=== PATIENT | male | born 1985 | race Caucasian/White ===

== ENCOUNTER 2019-08-21 15:01 | Outpatient (CLI) | payer OTHER, SELFPAY | END 2019-08-21 15:02 | disposition home or self-care (01) | PROVIDERS: PCP Internal Medicine; Visit Provider Internal Medicine | DX: R19.7 Diarrhea, unspecified (principal) | CPT/HCPCS: 87177; 87209 ==

== ENCOUNTER 2021-09-05 12:38 | Emergency (ER) | payer OTHER, SELFPAY ==
[2021-09-05 12:43] VITALS: BP 147/91; PULSE 94; RESP 16; TEMP 36.7; O2SAT 100
--- NOTE | 2021-09-05 12:51 | ED.LOWEXIN ---
HPI - Extremity Injury (Lower) General Chief Complaint: Extremity Injury, Lower Stated Complaint: left hamstring pain Time Seen by Provider: 09/05/21 12:40 Source: patient History of Present Illness HPI Narrative: Patient presents with left posterior thigh pain. Patient ports that pain for the past few days. His pain is achy, constant, worse with walking around. When he is walking it radiates down towards his knee and he feels a pressure sensation. Reports these travel to [place] recently for work denies any recent hospitalizations surgeries or prior history of blood clots. Denies any edema or trauma. Related Data Allergies Allergy/AdvReac Type Severity Reaction Status Date / Time No Known Allergies Allergy Unverified 06/19/18 20:43 Review of Systems Review of Systems: CONSTITUTIONAL: Denies fever, chills, or sweats. EYES: Denies visual changes, redness, or discharge. ENT: Denies rhinorrhea, congestion, sore throat, or otalgia. CARDIOVASCULAR: Denies chest pain, palpitations, or edema. RESPIRATORY: Denies cough or dyspnea. GASTROINTESTINAL: Denies abdominal pain, nausea, vomiting, or diarrhea. GENITOURINARY: Denies dysuria or hematuria. SKIN: Denies rash or itching. MUSCULOSKELETAL: Denies back pain, joint pain. NEUROLOGIC: Denies headache, numbness, dizziness, or weakness. PSYCHIATRIC: Denies anxiety or depression. All systems reviewed & are unremarkable except as noted in HPI and below PMFSH Past Medical History Medical History (Updated 09/05/21 @ 12:54 by Toby Barnes MD) Patient denies significant medical history Family History Family History Mother Family history of blood dyscrasia Social History Social History Smoking status: Never smoker Alcohol intake: current Exam Narrative: GENERAL: Well-appearing, well-nourished, and in no acute distress. HEAD: Normocephalic, atraumatic. EYES: PERRLA and EOMI. ENT: Nares clear, no rhinorrhea or epistaxis. Mucous membranes moist. NECK: Supple. No masses. No JVD EXTREMITIES: Normal range of motion. No edema. Mild tenderness palpation along the left hamstring no open or draining wounds no masses no focal bony tenderness. Patient has 5 out of 5 strength through motion of the left hip and left knee SKIN: Warm, dry, no rash. NEURO: No focal deficits. Alert and oriented x3. PSYCH: Normal mood and affect. Course Vital Signs Vital signs: Vital Signs Temperature 36.7 C 09/05/21 12:43 Pulse Rate 94 09/05/21 12:43 Respiratory Rate 16 09/05/21 12:43 Blood Pressure 147/91 H 09/05/21 12:43 Pulse Oximetry 100 09/05/21 12:43 Temperature 36.7 C 09/05/21 12:43 Pulse Rate 94 09/05/21 12:43 Respiratory Rate 16 09/05/21 12:43 Blood Pressure 147/91 H 09/05/21 12:43 Pulse Oximetry 100 09/05/21 12:43 MDM - Extremity Injury (Lower) MDM Narrative Medical decision making narrative: H&P as above, vss, pt looks clinically well, exam mild tenderness palpation of the hamstring, labs/img were offered however there is local concern for DVT, rhabdo myelolysis, fracture, major neurovascular compromise, dislocation. Patient comfortable without labs or imaging and will monitor symptoms at home. Suspect soft tissue strain. plan to tx/monitor as op w/ pcm f/u findings/plan discussed with pt, pt agree/comfortable with plan, return precautions given Discharge Plan Discharge Clinical Impression: Muscle strain Patient Disposition: Home, Self-Care Condition: Improved Instructions: Antibiotic Form, P.R.I.C.E. Treatment (ED) Additional Instructions: Please return if your symptoms worsen or fail to improve. If you develop a fever, can not eat/drink anything or if you have any other concerns. Follow-up/Referrals: Dave,Tan Johnson MD [Primary Care Provider] - Time of Disposition: 12:54
== END 2021-09-05 13:07 | disposition home or self-care (01) ==
LOC: ANHED 13:02
PROVIDERS: Emergency Provider Emergency Medicine; PCP Internal Medicine
DX: S76.812A Strain of other specified muscles, fascia and tendons at thigh level, left thigh, initial encounter (principal); X58.XXXA Exposure to other specified factors, initial encounter
CPT/HCPCS: 99281

== ENCOUNTER 2022-04-20 11:34 | Emergency (ER) | payer OTHER, SELFPAY ==
[2022-04-20 12:31] VITALS: BP 122/92; PULSE 78; RESP 18; TEMP 36.2; O2SAT 100
--- NOTE | 2022-04-20 13:25 | ED.URI ---
HPI - URI/Sore Throat General Chief Complaint: Upper Respiratory Infection Stated Complaint: dizziness,cough,sorethroat Time Seen by Provider: 04/20/22 13:25 Source: patient Mode of arrival: ambulatory Limitations: no limitations History of Present Illness HPI Narrative: 36-year-old male presents with complaint of nasal congestion, sinus pressure, postnasal drainage and cough for approximately 1 week. Reports that cough is worse in the morning. States all symptoms have been getting progressively worse. Today took a COVID test that was negative. Afebrile. Reports pressure past 2 days to both ears. All systems reviewed and negative except as noted above. Related Data Home Medications Medication Instructions Recorded Confirmed escitalopram oxalate 20 mg tablet 20 mg PO DAILY 04/20/22 04/20/22 Allergies Allergy/AdvReac Type Severity Reaction Status Date / Time No Known Allergies Allergy Verified 04/20/22 12:48 Review of Systems Review of Systems: CONSTITUTIONAL: Denies fever, chills, or sweats. Reports fatigue. EYES: Denies visual changes, redness, or discharge. ENT: Reports rhinorrhea, congestion, sore throat, sinus pressure and otalgia. CARDIOVASCULAR: Denies chest pain, palpitations, or edema. RESPIRATORY: reports cough. Denies dyspnea. GASTROINTESTINAL: Denies abdominal pain, nausea, vomiting, or diarrhea. GENITOURINARY: Denies dysuria or hematuria. SKIN: Denies rash or itching. MUSCULOSKELETAL: Denies back pain, joint pain, or myalgia. NEUROLOGIC: Denies headache, numbness, or weakness. PSYCHIATRIC: Denies anxiety or depression. All other systems reviewed are negative, except as documented in HPI. [facility] Past Medical History Medical History (Updated 04/21/22 @ 00:01 by Lisandro Snell) Patient denies significant medical history Family History Family History Mother Family history of blood dyscrasia Social History Social History Smoking status: Never smoker Alcohol intake: current Comments reviewed Exam Narrative: GENERAL: This is a well-nourished, well-developed patient, in no apparent distress. HEAD: normocephalic, atraumatic. EYES: PERRL. Sclera clear/white. Vision is grossly intact. EARS: External ears normal, auditory canals clear and without drainage, Fluids to bilateral TMs, mild erythema with bulging. No perforation. NOSE: External nose normal with Clear nasal drainage, erythema to both nares with swelling, mild moderate congestion. Bilateral maxillary sinus tenderness. THROAT: Mucous membranes moist, posterior pharynx clear. NECK: Neck supple, non-tender without lymphadenopathy, masses or thyromegaly. CARDIOVASCULAR: Regular rate and rhythm without murmurs, gallops, or rubs. RESPIRATORY: Clear to auscultation. Breath sounds equal bilaterally. No wheezes, rales, or rhonchi. SKIN: warm, Dry, intact with no suspicious lesions or rash, good texture and turgor. NEURO: awake, alert, and oriented to person, place and time. There were no obvious focal neurologic abnormalities. EXTREMITIES: No joint tenderness, effusion, or edema noted. Course Course Level of Care: Express Care Visit Vital Signs Vital signs: Vital Signs Temperature 36.2 C L 04/20/22 12:31 Pulse Rate 78 04/20/22 12:31 Respiratory Rate 18 04/20/22 12:31 Blood Pressure 122/92 H 04/20/22 12:31 Pulse Oximetry 100 04/20/22 12:31 Oxygen Delivery Room Air 04/20/22 12:31 Temperature 36.2 C L 04/20/22 12:31 Pulse Rate 78 04/20/22 12:31 Respiratory Rate 18 04/20/22 12:31 Blood Pressure 122/92 H 04/20/22 12:31 Pulse Oximetry 100 04/20/22 12:31 Oxygen Delivery Room Air 04/20/22 12:31 Reviewed MDM - URI/Sore Throat MDM Narrative Medical decision making narrative: Patient is aware of diagnosis, understands and agrees to treatment plan. Gali carson
== END 2022-04-20 13:35 | disposition home or self-care (01) ==
PROVIDERS: Emergency Provider Nurse Practitioner Family; PCP Internal Medicine
DX: J01.90 Acute sinusitis, unspecified (principal); H65.93 Unspecified nonsuppurative otitis media, bilateral
CPT/HCPCS: 99211; G0463

== ENCOUNTER 2022-07-24 11:09 | Emergency (ER) | payer OTHER, SELFPAY ==
[2022-07-24 11:30] VITALS: BP 137/85; PULSE 96; RESP 20; TEMP 36.7; O2SAT 97
[2022-07-24 12:10] LABS: Basophils Percent Auto 0.5 % (0.2-1.2); Eosinophils Absolute Auto 0.1 K/mm3 (0-0.3); Eosinophils Percent Auto 0.6 % (0-4.4); Hematocrit 47.2 % (42.0-52.0); Hemoglobin 16.1 g/dL (14.0-18.0); Immature Granulocyte Absolute 0.02 K/mm3 (0.00-0.031); Immature Granulocyte Percent A 0.3 % (0-0.5); Lymphocytes Absolute Auto 1.76 K/mm3 (0.9-3.2); Lymphocytes Percent Auto 22.1 % (18.3-44.2); Mean Corpuscular HGB Conc 34.1 g/dl (32-36); Mean Corpuscular Hemoglobin 30.7 pg (26-34); Mean Corpuscular Volume 89.9 fl (80-100); Mean Platelet Volume 9.5 fl (7.4-10.4); Monocytes Absolute Auto 0.5 K/mm3 (0.1-0.6); Neutrophils Absolute Auto 5.6 K/mm3 (1.3-6.7); Neutrophils Percent Auto 70.5 % (45.5-73.1); Platelet Count Result 314 k/mm3 (150-375); Red Blood Count 5.25 M/mm3 (4.6-6.20); Red Cell Distribution Width 13.4 % (11.5-14.5)
[2022-07-24 12:16] LABS: Appearance Urine Clear (Clear); Bacteria Urine None Seen /hpf; Bilirubin Urine Negative (Negative); Blood Urine Negative (Negative); Color Urine Dark Yellow (Yellow); Glucose Urine UA Negative (Negative); Ketones Urine Trace mg/dL (Negative); Leukocyte Esterase Ur Trace LEU/UL (Negative); Nitrate Urine Negative (Negative); Non Pathogenic Casts 0-2; Protein Urine Trace mg/dL (Negative); RBC Urine 0-2 /hpf (0-2); Squamous Epithelial Cell Urine None seen /hpf (Few); WBC Urine 0-5 /hpf
[2022-07-24 12:18] LABS: Ethanol < 10 mg/dL (<10)
[2022-07-24 12:22] LABS: Alanine Aminotransferase 36 U/L (6-50); Albumin Level 5.1 g/dL (3.5-5.1); Alkaline Phosphatase 99 U/L (38-126); Anion Gap 9 mmol/L (8-16); Aspartate Amino Transferase 31 U/L (17-59); Bilirubin,Total 0.7 mg/dL (0.2-1.3); Blood Urea Nitrogen 15 mg/dL (9-20); Calcium 9.7 mg/dL (8.4-10.2); Carbon Dioxide 25 mmol/L (22-30); Chloride 104 mmol/L (98-107); Estimated CRCL calculation 124 ml/min; Estimated Glomerular Filt Rate > 60; Glucose 104 mg/dL (65-110); Potassium 4.5 mmol/L (3.4-5.0); Sodium 138 mmol/L (137-145)
[2022-07-24 12:28] LABS: Amphetamine Screen Urine Negative (Negative); Barbiturate Screen Urine Negative (Negative); Benzodiazepines Screen Urine Negative (Negative); Cannabinoid Screen Urine Negative (Negative); Cocaine Screen Urine Negative (Negative); Methadone Screen Urine Negative (Negative); Opiate Screen Urine Negative (Negative); Phencyclidine Screen Urine Negative (Negative)
[2022-07-24 12:35] LABS: Add Urine Microscopic? YES
[2022-07-24 12:45] LABS: Influenza A QL RT-PCR Negative (Negative); Influenza B QL RT-PCR Negative (Negative); SARS-CoV-2 RNA PCR Negative
[2022-07-24 12:55] LABS: Thyroid Stimulating Hormone 0.532 uIU/mL (0.465-4.680)
--- NOTE | 2022-07-24 13:02 | PC.NURSE ---
Crisis will come to evaluate pt.
--- NOTE | 2022-07-24 13:09 | ED.PSYCH ---
HPI - Psych General Chief Complaint: Psychiatric Symptoms Stated Complaint: Depression bad thoughts , lack of appeitie Time Seen by Provider: 07/24/22 11:42 Source: patient Mode of arrival: ambulatory Limitations: no limitations History of Present Illness HPI Narrative: This is a 36 year old male that presents to the ER for worsening depression ongoing over the last week. Reports history of anxiety for which he takes Escitalopram daily. He does report not consistently taking this medication. Reports over the last week he has had worsening depression. Reports no known triggers or recent increased stress. Reports he does not want to get out of bed and has no energy. He feels hopeless, doesn't want to eat, and has no energy. He reports some passive thoughts of self harm without a plan. No previous attempts at self-harm. No previous psychiatric hospitalizations. Denies homicidal ideations or hallucinations. Related Data Home Medications Medication Instructions Recorded Confirmed escitalopram oxalate 20 mg tablet 20 mg PO DAILY 04/20/22 04/20/22 Allergies Allergy/AdvReac Type Severity Reaction Status Date / Time No Known Allergies Allergy Verified 07/24/22 11:35 Review of Systems Review of Systems: CONSTITUTIONAL: Denies fever PSYCHIATRIC: Reports anxiety and depression. All systems reviewed & are unremarkable except as noted in HPI and below PMFSH Past Medical History Medical History (Updated 07/24/22 @ 14:19 by Angelic West PA-C) History of anxiety Family History Family History Mother Family history of blood dyscrasia Social History Social History Smoking status: Never smoker Alcohol intake: current Substance use type: does not use Exam Narrative: GENERAL: Well-appearing, well-nourished, and in no acute distress. HEAD: Normocephalic, atraumatic. EYES: EOMI. ENT: Mucous membranes moist. Oropharynx without tonsillar hypertrophy exudate or other lesions. CHEST: Clear to auscultation. No respiratory distress. No wheezes rales or rhonchi HEART: Regular rate and rhythm. No murmur heard. Normal peripheral pulses. EXTREMITIES: Normal range of motion. No edema. SKIN: Warm, dry, no rash. NEURO: No focal deficits. Alert and oriented x3. PSYCH: Normal mood and affect Course Course Emergency Course: Patient evaluated by crisis and will be discharged with resources and safety plan. Patient and agree with plan Vital Signs Vital signs: Vital Signs Temperature 98.1 F 07/24/22 11:30 Pulse Rate 96 07/24/22 11:30 Respiratory Rate 20 07/24/22 11:30 Blood Pressure 137/85 07/24/22 11:30 Pulse Oximetry 97 07/24/22 11:30 Oxygen Delivery Room Air 07/24/22 11:30 Temperature 98.1 F 07/24/22 11:30 Pulse Rate 96 07/24/22 11:30 Respiratory Rate 20 07/24/22 11:30 Blood Pressure 137/85 07/24/22 11:30 Pulse Oximetry 97 07/24/22 11:30 Oxygen Delivery Room Air 07/24/22 11:30 MDM - Psych MDM Narrative Medical decision making narrative: Patient presents to the ER for worsening depression noted over the last week. No active plan of self harm. No previous attempts at self harm or history of psychiatric hospitalization. Does report he was not properly taking his Escitalopram. He has a good support system. CBC and metabolic panel without concerning findings. Drug screen is negative. Alcohol level is negative. TSH is normal. Patient was medically cleared for evaluation by crisis. Patient evaluated and will be discharged with resources and safety plan. Patient and agree with plan. He was given warnings to return to the ER Differential Diagnosis Differential diagnosis: Likely suicidal ideation, depression and acute anxiety Lab Data Attestation: I reviewed the patient's lab results. 07/24/22 11:49 07/24/22 11:49 Labs: Lab Resul
== END 2022-07-24 14:32 | disposition home or self-care (01) ==
PROVIDERS: Emergency Medicine; Emergency Provider Physician Assistant; PCP Internal Medicine
DX: F32.A Depression, unspecified (principal); F41.9 Anxiety disorder, unspecified; Z20.822 Contact with and (suspected) exposure to COVID-19; Z79.82 Long term (current) use of aspirin
CPT/HCPCS: 36415; 80053; 80307; 81001; 84443; 85025; 87636; 99284

== ENCOUNTER 2024-06-25 17:34 | Emergency (ER) | payer OTHER, SELFPAY ==
--- OUTSIDE RECORDS SUMMARY | 2024-06-25 17:49 | XMS_ITS | Clinical Summary ---
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 Name Role Phone Unavailable Primary Care Provider Unavailabl e Allergies No known active allergies Medications No known medications Active Problems No known active problems Social History Tobacco Use Types Packs/Day Years Used Date Smoking Tobacco: Never Smokeless Tobacco: Never Alcohol Use Standard Drinks/Week Comments Yes 0 (1 standard drink = 0.6 oz pur e alcohol) Sex and Gender Information Value Date Recorded Sex Assigned at Not on file Legal 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 Gender Identity Not on file Sexual Orientation Not on file Last Filed Vital Signs Vital Sign Reading Time Taken Comments Blood Pressure 131/84 04/08/2020 9:11 AM TOPOLOGY TEACHER Pulse 85 04/08/2020 9:11 AM TOPOLOGY TEACHER Temperature 36.7 ??C (98 ??F) 04/08/2020 9:11 AM TOPOLOGY TEACHER Respiratory Rate - - Oxygen Saturation 99% 04/08/2020 9:11 AM TOPOLOGY TEACHER Inhaled Oxygen Concentration - - Weight 108.9 kg (240 lb) 04/08/2020 9:11 AM TOPOLOGY TEACHER Height 182.9 cm (6') 04/08/2020 9:11 AM TOPOLOGY TEACHER Body Mass Index 32.55 04/08/2020 9:11 AM TOPOLOGY TEACHER Plan of Treatment Health Maintenance Due Date Last Done Comments DTAP/TDAP/TD VACCINES (1 - Tdap) 2004 HEPATITIS B VACCINES (1 of 3 - 19+ 3-dose series) 2004 INFLUENZA VACCINE (#1) 2023 04/16/2019 HPV VACCINES Aged Out No longer eligi ble based on patient's age to complete this topic Insurance [employer]
--- OUTSIDE RECORDS SUMMARY | 2024-06-25 17:49 | XMS_ITS | Clinical Summary ---
Author Organization [facility] [address] Address [address] [place] [id number] Care Team Providers Care Leakage Tester Name Role Phone Tan Acosta MD Primary Care Provider [phone] Allergies No known active allergies Medications multivitamin with minerals (Multiple Vitamin-Minerals ) tablet Take 1 tablet by mouth daily Active hyoscyamine (LEVSIN) 0.125 mg tablet 11/17/2020 Active escitalopram (LEXAPRO) 20 mg tablet Take 1 tablet by mouth daily 08/24/2021 Active docosahexaenoic acid-epa 120-180 mg capsule Take 1,000 mg by mouth 2 (two) times a day Active cholecalciferol (VITAMIN D-3) 2000 unit tablet Take by mouth Active Active Problems Problem Noted Date Diagnosed Date COVID-19 02/09/2022 Obstructive sleep apnea syndrome, moderate 08/30 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/2018 Generalized anxiety disorder 05/31/2018 Depression, major, single episode, moderate 03/01 Liver cyst 07/29/2016 Dermatofibroma 03/24/2015 Right hip pain 03/24/2015 Lump in the testicle 04/29/2014 Fatigue 01/03/2013 Encounters Date Type Department Care Team Description 06/20/2024 7:05 PM ICE RINK ATTENDANT - 06/20/2024 11:59 PM ICE RINK ATTENDANT Hospital Encounter [facility] [address] [place] [id number] Discharge Disposition: Discharge to home or self care 06/20/2024 2:59 PM ICE RINK ATTENDANT - 06/20/2024 11:59 PM ICE RINK ATTENDANT Hospital Encounter [facility]) [address] [place] [address] Discharge Disposition: Discharge to home or self care 05/15/2024 2:01 PM ICE RINK ATTENDANT - 05/15/2024 3:10 PM ICE RINK ATTENDANT Emergency [facility] Emergency Department [address] [place] [address] Gabriel Duckworth DO Dizziness (Primary Dx) Discharge Disposition: Discharge to home or self care from Last 3 Months Surgical History Surgery Date Site/Laterality Comments APPENDECTOMY SINUS SURGERY EAR SURGERY Medical History Medical History Date Comments Anxiety Social History Tobacco Use Types Packs/Day Years Used Date Smoking Tobacco: Never Smokeless Tobacco: Never Personal Safety Answer Date Recorded Have you ever been in or are you currently in a harmful physical or emotional relationship or is someone making you feel afraid or unsafe? Denies 05/15/2024 Sex and Gender Information Value Date Recorded Sex Assigned at Not on file Legal Sex Male 3:18 PM ICE RINK ATTENDANT Gender Identity Not on file Sexual Orientation Not on file Obstetrics History Last Filed Vital Signs Vital Sign Reading Time Taken Comments Blood Pressure 120/85 05/15/2024 3:05 PM ICE RINK ATTENDANT Pulse 86 05/15/2024 3:05 PM ICE RINK ATTENDANT Temperature 37.1 ??C (98.7 ??F) 05/15/2024 1 1:27 AM ICE RINK ATTENDANT Respiratory Rate 20 05/15/2024 3:05 PM ICE RINK ATTENDANT Oxygen Saturation 98% 05/15/2024 3:05 PM ICE RINK ATTENDANT Inhaled Oxygen Concentration - - Weight 107.5 kg (236 lb 15.9 oz) 2023 11:27 AM ICE RINK ATTENDANT Height 182.9 cm (6') 05/15/2024 11:27 AM ICE RINK ATTENDANT Body Mass Index 32.14 05/15/2024 11:27 AM ICE RINK ATTENDANT Plan of Treatment Health Maintenance Due Date Last Done Comments Depression Screening 1985 Hepatitis C Screening 1985 Varicella Vaccines (1 of 2 - 13+ 2-dose series) 1998 Hepatitis B Screening 12/14/2003 Regular Well Visit/Exam 18-64 12/14/2003 DTaP/Tdap/Td Vaccine (1 - Tdap) 07/24/2014 07/23/2014 Covid-19 Vaccine (3 - 202-2 5 season) 2024 10/03/2020, 09/05/2020 Influenza Vaccine Completed 04/12/2024, 04/16/2019, 03/28/2018 HPV Vaccines Aged Out No longer eligi ble based on patient's age to complete this topic Pneumococcal vaccine <65 Aged Out No longer eligible based on patient's age to complete this topic Procedures Procedure Name Priority Date/Time Associated Diagnosis Comments NEURO MR OUTSIDE REFERENCE Routine 06/20/2024 7:05 PM ICE RINK ATTENDANT NEURO CT OUTSIDE REFERENCE Routine 06/20/2024 2:59 PM ICE RINK ATTENDANT Diagnosis unknown CT HEAD WO CONTRAST ED 05/15/2024 1 2:01 PM ICE RINK ATTENDANT URINALYSIS AND REFLEX TO MICROSCOPIC AND CULTURE STAT 05/15/2024 11:50 AM ICE RINK ATTENDANT POCT GLUCOSE DEVICE Routine 05/15/2024 1 1:48 AM ICE RINK ATTENDANT EGFR STAT 05/15/2024 11:42 AM ICE RINK ATTENDANT DIFFERENTIAL AUTO STAT 05/15/2024 11: 42 AM ICE RINK ATTENDANT COMPREHENSIVE METABOLIC PANEL STAT 05/15/2024 11:42 AM ICE RINK ATTENDANT CBC WITH AUTO DIFFERENTIAL STAT 05/15/2024 11:42 AM ICE RINK ATTENDANT ECG 12-LEAD STAT 05/15/2024 11:40 AM ICE RINK ATTENDANT from Last 3 Months Results * Neuro MR Outside Reference (06/20/2024 7:05 PM ICE RINK ATTENDANT) Impressions RAD_PACS_[facility] - 06/20/2024 7:05 PM ICE RINK ATTENDANT These images are for Reference purposes only and have not been reviewed by [facility]. ??There will be no report generated by a [facility] Radiologist. Narrative RAD_PACS_[facility] - 06/20/2024 7:05 PM ICE RINK ATTENDANT EXAMINATION: ??Images For Reference Purposes Only us Zacarias Grady MD IMG MRI PROCEDURES Final R esult RAD_PACS_[facility] * Neuro CT Outside Reference (06/20/2024 2:59 PM ICE RINK ATTENDANT) Impressions [facility]_PACS[facility] - 06/20/2024 2:59 PM ICE RINK ATTENDANT These images are for Reference purposes only and have not been reviewed by [facility]. ??There will be no report generated by a [facility] Radiologist. Narrative [facility]_PACS[facility] - 06/20/2024 2:59 PM ICE RINK ATTENDANT EXAMINATION: ??Images For Reference Purposes Only us Zacarias Grady MD IMG CT PROCEDURES Final Re sult Performing Organization Address [facility] Co de Phone Number [email or web address] * CT Head WO Contrast (05/15/2024 12:01 PM ICE RINK ATTENDANT) Anatomical Region Laterality Modality Head and Neck N/A Computed Tomogra phy 05/15/2024 12:4 3 PM ICE RINK ATTENDANT Narrative 05/15/2024 12:50 PM ICE RINK ATTENDANT EXAM DESCRIPTION: CT HEAD WO CONTRAST REASON FOR STUDY: Headache, sudden, severe ?Patient states last night at approx 7pm he felt a pop to the back of his head and began having tunnel vision and aphasia. States that subsided quickly but he continues to have dizziness and a headache. Denies any history of migraines. ? TECHNIQUE: Axial images acquired through the brain without intravenous contrast. Sagittal and coronal images reconstructed. ?? Images stored on PACS. Automated exposure control was used as a dose optimization technique for this examination. COMPARISON: None. FINDINGS: Beam hardening artifact from the skull base obscures evaluation of the brainstem. ??Findings made within these confines. ?? SURGICAL/SUPPORT DEVICES: ??None. BRAIN PARENCHYMA: ?? No acute large vascular territory infarction. ?? No acute intraparenchymal hemorrhage. ?? No mass or significant mass effect. ?Patchy periventricular hypodensities involving the bilateral centrum semiovale which are nonspecific but can be seen with mild chronic microvascular ischemic changes. ??Nonspecific partially empty sella. ? EXTRA-AXIAL SPACES: ?? No hyperdense fluid collections. ?? VENTRICLES: ??No acute hydrocephalus. BONES/SOFT TISSUES: ?? No significant soft tissue injury. No acute displaced calvarial fracture. PARANASAL SINUSES: ??Predominately clear. ORBITS: ?? No significant abnormality. MASTOIDS/MIDDLE EAR: ??Under developed bilateral mastoid air cells. OTHER: ?? None. IMPRESSION: 1. ?? No acute large vascular territorial infarction. ??No acute intracranial hemorrhage. 2. ?? Patchy periventricular white matter hypoattenuation which is nonspecific but can be seen with mild chronic microvascular ischemic change. THIS IS AN ELECTRONICALLY VERIFIED FINAL REPORT 05/15/2024 12:50 PM - Electronically signed by ??Heri uSe M.D. NS: NS D: ??05/15/2024 12:50 PM T: ??05/15/2024 12:50 PM Report ID: [id number] Reading Location: ??[id number] Procedure Note Heri Sue MD - 05/15/2024 EXAM DESCRIPTION: CT HEAD WO CONTRAST REASON FOR STUDY: Headache, sudden, severe Patient states last night at approx 7pm he felt a pop to the back ofhis head and began having tunnel vision and aphasia. States that subsidedquickly but he continues to have dizziness and a headache. Denies any history of migraines. TECHNIQUE: Axial images acquired through the brain without intravenous contrast. Sagittal and coronal images reconstructed. Images stored on[employer]ban[employer]. Automated exposure control was used as a dose optimization technique forthis examination. COMPARISON: None. FINDINGS: Beam hardening artifact from the skull base obscures evaluationof the brainstem. Findings made within these confines. SURGICAL/SUPPORT DEVICES: None. BRAIN PARENCHYMA: No acute large vascular territory infarction. Noacute intraparenchymal hemorrhage. No mass or significant mass effect.Patchy periventricular hypodensities involving the bilateral centrum semiovalewhich are nonspecific but can be seen with mild chronic microvascular ischemic changes. Nonspecific partially empty sella. EXTRA-AXIAL SPACES: No hyperdense fluid collections. VENTRICLES: No acute hydrocephalus. BONES/SOFT TISSUES: No significant soft tissue injury. No acutedisplaced calvarial fracture. PARANASAL SINUSES: Predominately clear. ORBITS: No significant abnormality. MASTOIDS/MIDDLE EAR: Under developed bilateral mastoid air cells. OTHER: None. IMPRESSION: 1. No acute large vascular territorial infarction. No acuteintracranial hemorrhage. 2. Patchy periventricular white matter hypoattenuation which isnonspecific but can be seen with mild chronic microvascular ischemic change. THIS IS AN ELECTRONICALLY VERIFIED FINAL REPORT 05/15/2024 12:50 PM - Electronically signed by Heri Sue M.D. NS: NS Report ID: [id number] Reading Location: [place] [address] Gabriel Duckworth DO IMG CT PROCEDURES Final Res ult * Urinalysis reflex to microscopic and culture Urine (05/15/2024 11:50 AM ICE RINK ATTENDANT) Color, ur Yellow Yellow Comment:Testing performed by : [address] [address] Clarity, ur Clear Clear [facility] Comment:Testing performed by : [address] [address] Specific gravity, ur 1.021 1.003 - 1.030 [facility] Comment:Testing performed by : [address] [address] pH, urine 7.5 [facility] Comment: Interpretive Data ? Urine pH is affected by diet, medications, systemic acid-base disturbances, and renal tubular function. ??pH may affect urinary stone formation. ??For example, urine pH below 6.0 may help reduce the tendency for calcium phosphate stones and pH greater than 6.0 may reduce the tendency for uric acid stone formation. Source: [employer] Current Interpretive Data was last revised on 2017 Testing performed by: [address] [address] Protein, ur ql Negative Negative [facility] Comment:Testing performed by : [address] [address] Glucose, ur ql Negative Negative [facility] Comment:Testing performed by : [address], [place]., [address] Ketones, ur Negative Negative [facility] Comment:Testing performed by : [address], [place]., [address] Bilirubin, ur Negative Negative [facility] Comment:Testing performed by : [address], [place]., [address] Blood, ur Negative Negative [facility] Comment:Testing performed by : [address], [place]., [address] Urobilinogen, ur <2.0 <2.0 mg/dL [facility] Comment:Testing performed by : [address], [place]., [address] Nitrite, ur Negative Negative [facility] Comment:Testing performed by : [address], [place]., [address] Leukocyte esterase, ur Negative Negative [facility] Comment:Testing performed by : [address], [place]., [address] UA reflex comment Reflex conditions for microscopic UA and culture not met. [facility] Comment:Testing performed by : [address], [place]., [address] Urine 05/15/2024 11:5 0 AM ICE RINK ATTENDANT 05/15/2024 12:03 PM ICE RINK ATTENDANT us Gabriel Duckworth DO LAB MICROBIOLOGY - GENERAL ORDERABLES Final Result Performing Organization Address [facility] Co nm Phone Number [facility] [address] [facility] Department of Laboratories [place], [place] [id number] * POCT glucose (05/15/2024 11:48 AM ICE RINK ATTENDANT) Glucose, POC 85 70 - 199 mg/dL Comment:Testing performed by : [address], [place]., [address] Blood 05/15/2024 11:4 8 AM ICE RINK ATTENDANT 05/15/2024 11:48 AM ICE RINK ATTENDANT us Notinfile Unknown LAB POCT ORDERABLES - DEVICE F inal Result Performing Organization Address City/[facility]/ZIP Co de Phone Number [facility] [address] [facility] Department [place] [address] * eGFR (05/15/2024 11:42 AM ICE RINK ATTENDANT) eGFR >90 >=60 mL/min/1. 73 m2 Comment: Interpretive Data Reference Interval Normal ?>/= 90 mL/min/1.73m2 Mildly decreased* ? 60 - 89 mL/min/1.73m2 Mildly to moderately decreased ?45 - 59 mL/min/1.73m2 Moderately to severely decreased ??30 - 44 mL/min/1.73m2 Severely decreased ?15 - 29 mL/min/1.73m2 Kidney Failure ?< 15 ??mL/min/1.73m2 *Relative to young adult level Estimated glomerular filtration rate is determined by the 2020 CKD-EPI equation recommended by the National Kidney Foundation (A Unifying Approach to GFR Estimation: Recommendations of the NKF-ASK Task Force on Reassessing the Inclusion of Race in Diagnosing Kidney Disease, JASN 2020). The CKD-EPI equation should not be used for patients with unstable renal function and has not been validated in children and those over 70. Current interpretive data was last reviewed 2021. Testing performed by: [facility], [address] [place] [address]., [address] Blood 05/15/2024 11:4 2 AM ICE RINK ATTENDANT 05/15/2024 12:03 PM ICE RINK ATTENDANT us Gabriel Duckworth DO LAB BLOOD ORDERABLES Final Result [facility] [address] [facility] Department [place] [address] * Differential, auto (05/15/2024 11:42 AM ICE RINK ATTENDANT) [facility] Neutrophil abs 4.7 1.5 - 6.5 K/cumm Comment:Testing performed by : [address] [address] Imm gran abs 0.0 0.0 - 0.1 K/cumm [facility] Comment:Testing performed by : [address] [address] Lymphocyte abs 1.5 0.8 - 3.3 K/cumm [facility] Comment:Testing performed by : [address] [address] Monocyte abs 0.5 0.2 - 0.8 K/cumm [facility] Comment:Testing performed by : [address] [address] Eosinophil abs 0.1 0.0 - 0.5 K/cumm [facility] Comment:Testing performed by : [address] [address] Basophil abs 0.0 0.0 - 0.1 K/cumm [facility] Comment:Testing performed by : [address] [address] Neutrophil pct 68.0 % [facility] Comment: Interpretive Data Percent cell count reference ranges are not reported, since discordance with absolute values may lead to misinterpretation of CBC data. Current Interpretive Data was last revised on 2017. Testing performed by: [address] [address] Imm gran pct 0.4 % [facility] Comment: Interpretive Data Percent cell count reference ranges are not reported, since discordance with absolute values may lead to misinterpretation of CBC data. Current Interpretive Data was last revised on 2017. Testing performed by: [address] [address] Lymphocyte pct 22.3 % [facility] Comment: Interpretive Data Percent cell count reference ranges are not reported, since discordance with absolute values may lead to misinterpretation of CBC data. Current Interpretive Data was last revised on 2017. Testing performed by: [address] [address] Monocyte pct 7.7 % [facility] Comment: Interpretive Data Percent cell count reference ranges are not reported, since discordance with absolute values may lead to misinterpretation of CBC data. Current Interpretive Data was last revised on 2017. Testing performed by: [address] [address] Eosinophil pct 1.2 % [facility] Comment: Interpretive Data Percent cell count reference ranges are not reported, since discordance with absolute values may lead to misinterpretation of CBC data. Current Interpretive Data was last revised on 2017. Testing performed by: [address] [address] Basophil pct 0.4 % [facility] Comment: Interpretive Data Percent cell count reference ranges are not reported, since discordance with absolute values may lead to misinterpretation of CBC data. Current Interpretive Data was last revised on 2017. Testing performed by: [address] [address] Blood 05/15/2024 11:4 2 AM ICE RINK ATTENDANT 05/15/2024 12:03 PM ICE RINK ATTENDANT us Gabriel Duckworth DO LAB BLOOD ORDERABLES Final Result [facility] [address] [facility] Department [place] [address] * CBC with auto differential (05/15/2024 11:42 AM ICE RINK ATTENDANT) WBC 6.9 3.8 - 9.9 K/cumm Comment:Testing performed by : [address] [address] Hgb 15.1 13.0 - 17.5 g/dL [facility] Comment:Testing performed by : [address] [address] Hct 45.4 38.9 - 50.3 % [facility] Comment:Testing performed by : [address] [address] Plt 285 150 - 400 K/cumm [facility] Comment:Testing performed by : [address] [address] MPV 10.1 9.1 - 12.3 fL [facility] Comment:Testing performed by : [address] [address] RBC 5.02 4.30 - 5.80 M/cumm [facility] Comment:Testing performed by : [address] [address] MCV 90.4 81.3 - 96.4 fL [facility] Comment:Testing performed by : [address] [address] MCH 30.1 27.1 - 33.3 pg [facility] Comment:Testing performed by : [address] [address] MCHC 33.3 32.3 - 35.7 g/dL [facility] Comment:Testing performed by : [address] [address] RDW CV 13.2 11.1 - 14.9 % [facility] Comment:Testing performed by : [address] [address] RDW SD 42.9 35.7 - 48.1 fL [facility] Comment:Testing performed by : [address] [address] NRBC abs 0.00 0.00 - 0.01 K/cumm [facility] Comment:Testing performed by : [address] [address] Blood 05/15/2024 11:4 2 AM ICE RINK ATTENDANT 05/15/2024 12:03 PM ICE RINK ATTENDANT us Gabriel Duckworth DO LAB BLOOD ORDERABLES Final Result [facility] [address] [facility] Department [place] [address] * Comprehensive metabolic panel (05/15/2024 11:42 AM ICE RINK ATTENDANT) Sodium 140 135 - 145 mmol/L Comment:Testing performed by : [address] [address] Potassium, pl 4.1 3.3 - 4.9 mmol/L [facility] Comment:Testing performed by : [address], [place]., [address] Chloride 103 97 - 110 mmol/L [facility] Comment:Testing performed by : [address], [place]., [address] CO2 28 22 - 32 mmol/L [facility] Comment:Testing performed by : [address], [place]., [address] Anion gap 9 2 - 15 mmol/L [facility] Comment:Testing performed by : [address], [place]., [address] BUN 11 6 - 25 mg/dL [facility] Comment:Testing performed by : [address], [place]., [address] Creatinine 1.00 0.80 - 1.30 mg/dL [facility] Comment:Testing performed by : [address] [address] Glucose 90 70 - 199 mg/dL [facility] Comment: Interpretive Data Fasting glucose >/= 126 mg/dl is diagnostic for diabetes. ?? Fasting is defined as no caloric intake for at least 8 hours. Fasting glucose between 100 mg/dl to 125 mg/dl is diagnostic of prediabetes. In a patient with classic symptoms of hyperglycemia or hyperglycemic crisis, a random glucose >/= 200 mg/dl is diagnostic for diabetes. In the absence of unequivocal hyperglycemia, results should be confirmed by repeat testing. The classification and Diagnosis of Diabetes Diabetes Care 202; 46: S19-S40. Current interpretive data was last revised 2022. Testing performed by: [address] [address] Calcium 9.6 8.5 - 10.3 mg/dL [facility] Comment:Testing performed by : [address] [address] Bilirubin, total 0.3 0.1 - 1.2 mg/dL [facility] Comment:Testing performed by : [address] [address] Protein, pl 7.8 6.5 - 8.5 g/dL [facility] Comment:Testing performed by : [address] [address] Albumin 4.5 3.5 - 5.0 g/dL [facility] Comment:Testing performed by : [address] [address] Alk phos 103 40 - 130 Units/L [facility] Comment:Testing performed by : [address] [address] ALT 19 7 - 55 Units/L [facility] Comment:Testing performed by : [address] [address] AST 19 10 - 50 Units/L [facility] Comment:Testing performed by : [address], [address] Blood 05/15/2024 11:4 2 AM ICE RINK ATTENDANT 05/15/2024 12:03 PM ICE RINK ATTENDANT Gabriel Duckworth DO LAB BLOOD ORDERABLES Final Result Performing Organization Address City/[facility] Co de Phone Number [facility] [address] [facility] Department [place] [address] * ECG 12 lead (05/15/2024 11:40 AM ICE RINK ATTENDANT) Ventricular Rate EKG/Min 86 BPM [facility] Atrial Rate [address] [facility] CA-Interval (MSEC) [address] [facility] QRS-Interval (MSEC) [address] [facility] QT-Interval (MSEC[facility] [address] [facility] QTc [address] [facility] P [place] [address] [facility] R [place] [address] [facility] T [place] [address] [facility] Diagnosis Normal sinus rhythm Normal ECG No previous ECG available for comparison Confirmed by SULTAN COON M.D. ([id number]) on 05/15/2024 4:35:11 PM [facility] 05/15/2024 11:4 0 AM ICE RINK ATTENDANT 05/15/2024 4:35 PM ICE RINK ATTENDANT Gabriel Duckworth DO ECG ORDERABLES Final Resul t Performing Organization Address City/[facility] Co de Phone Number [facility] from Last 3 Months Insurance CIG[employer] CIGNA CIGNA Care Teams Leakage Tester Relationship Specialty Start Date End Date Tan Acosta MD [address] [place] [address] PCP - General Internal Medicine 12/06/22
--- OUTSIDE RECORDS SUMMARY | 2024-06-25 17:49 | XMS_ITS | Encounter Summary ---
Author Organization [facility] Address [address] [place] [address]. [place], [place] [address] [place] [address] Care Team Providers Care Air Reduction Equipment Operator Name Role Phone Tan Acosta MD Primary Care Provider [phone] Encounter Details Date Type Department Care Team (Late st Contact Info) Description 11/09/2019 Prep for Procedure [facility] One Day [place], [place] [phone] Reza Aburto MD [address] [phone] Social History Tobacco Use Types Packs/Day Years Used Date Smoking Tobacco: Former Cigarettes Smokeless Tobacco: Former Chew Comments:can't remember when he quit- been several years Alcohol Use Standard Drinks/Week Comments Yes 1.7 (1 standard drink = 0.6 oz p ure alcohol) AUDIT-C Answer Date Recorded Frequency of Alcohol Consumption 2-3 times a wee k 05/31/2018 Average Number of Drinks 1 or 2 019 Frequency of Binge Drinking Not on file 06/2018 Sex and Gender Information Value Date Recorded Sex Assigned at Male 05/31/2018 10:17 AM BOOSTER PLANT OPERATOR Legal Sex Male 4:36 PM CDT Gender Identity Male 05/31/2018 10:17 AM BOOSTER PLANT OPERATOR Sexual Orientation Straight 05/31/2018 10 :17 AM BOOSTER PLANT OPERATOR COVID-19 Exposure Response Date Recorded In the last month, have you been in contact with someone who was confirmed or suspected to have Coronavirus / COVID-19? No / Unsure 11/12/2019 12:28 PM CDT documented as of this encounter Plan of Treatment Not on file documented as of this encounter Results * PRE-SURGICAL/PRE-PROCEDURE CORONAVIRUS (COVID 19) (11/09/2019 1:15 PM CDT) CORONAVIRUS SARS COV 2 PCR (RESP) NOT DETECTED NOT DETECTED 11/11/2019 4:54 AM CDT [facility] Comment: A Not Detected (negative) test result for this test means that SARS- CoV-2 RNA was not present in the specimen above the limit of detection. A negative result does not rule out the possibility of COVID-19 and should not be used as the sole basis for treatment or patient management decisions. ??If COVID-19 is still suspected, based on exposure history together with other clinical findings, re-testing should be considered in consultation with public health authorities. Laboratory test results should always be considered in the context of clinical observations and epidemiological data in making a final diagnosis and patient management decisions. Please review the Fact Sheets and FDA authorized labeling available for health care providers and patients using the following websites: https://www.[employer]/home/Covid-19/HCP/NAAT/fact-sheet2 https://www.[employer]/home/Covid-19/Patients/NAAT/ fact-sheet2 This test has been authorized by the FDA under an Emergency Use Authorization (EUA) for use by authorized laboratories. Due to the current public health emergency, [facility] is receiving a high volume of samples from a wide variety of swabs and media for COVID-19 testing. In order to serve patients during this public health crisis, samples from appropriate clinical sources are being tested. Negative test results derived from specimens received in non-commercially manufactured viral collection and transport media, or in media and sample collection kits not yet authorized by FDA for COVID-19 testing should be cautiously evaluated and the patient potentially subjected to extra precautions such as additional clinical monitoring, including collection of an additional specimen. Methodology: ??Nucleic Acid Amplification Test (NAAT) includes PCR or TMA Additional information about COVID-19 can be found at the [facility] website: www.[employer]/Covid19. Test performed at [facility] [address] [place], [place] ??[address] Director: ARYAN GIRON DO,MPH NASOPHARYNGEAL SWAB / Unknown 11/09/2019 1:15 PM CDT us Reza Aburto MD MICROBIOLOGY - GENERAL ORDERABLE S Final Result [facility] [address] [place] [address], documented in this encounter Visit Diagnoses Diagnosis Diarrhea- Primary documented in this encounter Additional Health Concerns Infection Onset Date Last Indicated Resolved Time COVID-19 Rule Out 11/09/2019 11/09/2019 11/11/2019 4:54 AM CDT COVID-19 Rule Out 11/09/2019 11/09/2019 05/09/2020 2:45 PM BOOSTER PLANT OPERATOR COVID-19 Rule Out 04/03/2021 04/03/2021 04/03/2021 10:25 AM CDT COVID-19 Rule Out 04/03/2021 04/03/2021 04/04/2021 2:31 AM CDT COVID-19 Rule Out 06/03/2023 06/03/2023 06/03/2023 1:53 PM BOOSTER PLANT OPERATOR COVID-19 Rule Out 06/03/2023 06/03/2023 06/04/2023 11:32 PM BOOSTER PLANT OPERATOR documented as of this encounter Care Teams Air Reduction Equipment Operator Relationship Specialty Start Date End Date Tan Acosta MD [address] [place] [address] PCP - General 01/19/13 documented as of this encounter
--- OUTSIDE RECORDS SUMMARY | 2024-06-25 17:49 | XMS_ITS | Clinical Summary ---
Author Organization [facility] Address [address] [place] [address]. [place], [place] [id number] [place] [address] Care Team Providers Care Pararescue Craftsman Name Role Phone Tan Acosta MD Primary Care Provider [phone] Allergies No known active allergies Medications Cholecalciferol (VITAMIN D) 50 MCG (1999) Tab Active multi vitamin/mineral s tablet Take 1 tablet by mouth daily. Active CPAP DEVICE, DME, 1 Device by Does not apply route. AutoPap: [id number] ([facility]) Active LORazepam (ATIVAN) 0.5 MG tabletIndicatio ns:Generalized anxiety disorder TAKE 1 TABLET(0.5 MG) BY MOUTH TWICE DAILY NEEDED FOR ANXIETY 10 tablet 03/12/2024 Active venlafaxine XR (EFFEXOR-XR) 75 MG 24 hr capsuleIndicati ons:Generalized anxiety disorder TAKE 1 CAPSULE(75 MG) BY MOUTH DAILY 90 capsule 05/21/2024 Active Active Problems Problem Noted Date Diagnosed Date COVID-19 02/09/2022 Obstructive sleep apnea syndrome, moderate 08/30 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/2018 Generalized anxiety disorder 05/31/2018 Depression, major, single ep isode, moderate (CMS/HCC HHS/HCC) 03/28/2018 Liver cyst 07/29/2016 Dermatofibroma 03/24/2015 Right hip pain 03/24/2015 Lump in the testicle 04/29/2014 Fatigue 01/03/2013 Resolved Problems Problem Noted Date Diagnosed Date Resolved Date Influenza vaccine needed 03/28/201803/2020 Ear congestion 06/02/2017 05/31/2018 Encounters Date Type Department Care Team Description 06/06/2024 Telephone [facility] Family & Internal [address] [phone] Tan Acosta MD Advice 06/05/2024 10:40 AM CONTENT ASSISTANT Office Visit [facility] Internal [address] [phone] Tan Acosta MD ER F/U ([facility] hospital f/u 05/15/24 for dizziness, confusion, dysphasia) 06/05/2024 Travel 05/28/2024 1:52 PM CONTENT ASSISTANT - 05/28/2024 11:59 PM CONTENT ASSISTANT Hospital Encounter [address] [address] Tan Acosta MD Discharge Disposition: Home or Self Care (Routine Discharge) 05/28/2024 Travel 05/15/2024 Scan Medio INFO SRVCS Scanned, [facility] 05/15/2024 Telephone [facility] [address] [phone] Tan Acosta MD Advice 05/11/2024 1:20 PM CONTENT ASSISTANT Office Visit [address] [phone] Leo Briceño, [place] Shortness Of Breath (Pt c/o SOB starting 2 wks ago sore throat, a cough sometimes. Did a covid test at home (negative)) 05/11/2024 Travel 05/11/2024 Telephone [facility] [address] [phone] Tan Acosta MD Other 04/12/2024 2:00 PM CONTENT ASSISTANT Office Visit [facility] [address] [phone] Tan Acosta MD Physical 04/12/2024 Travel from Last 3 Months Immunizations Name Administration Dates Next Due Fluzone (IIV3, Trivalent, 0.5 ML Prefilled Syrin ge) 04/12/2024 Fluzone 6 Months+ Quad (0.5 mL Prefilled Syringe ) 04/16/2019 Influenza Adult (Generic) 03/28/2018 PFIZER COVID-19 (ORIGINAL FO RMULATION, PURPLE CAP) mRNA, LNP-S, PF, 30 MCG/0.3 ML DOSE 10/03/2020,09/05/2020 Td (Generic) 07/23/2014 Family History Medical History Relation Comments Cancer Maternal Grandfather Diabetes Maternal Grandfather Heart Disease Maternal Grandfather Cancer Maternal Grandmother Diabetes Maternal Grandmother Hypertension Mother Kidney Disease Mother Alzheimers Paternal Grandfather Hypertension Paternal Grandmother Hypertension Paternal Uncle Relation Status Comments Maternal Grandfather Maternal Grandmother Mother Paternal Grandfather Paternal Grandmother Paternal Uncle Social History Tobacco Use Types Packs/Day Years Used Date Smoking Tobacco: Former Cigarettes Smokeless Tobacco: Former Chew Tobacco Cessation:Counseling Given: Yes Comments:can't remember when he quit- been several years Alcohol Use Standard Drinks/Week Comments Not Currently 0 (1 standard drink = 0.6 oz pur e alcohol) AUDIT-C Answer Date Recorded Frequency of Alcohol Consumption 2-3 times a wee k 05/31/2018 Average Number of Drinks 1 or 2 019 Frequency of Binge Drinking Not on file 06/2018 PHQ-2 Answer Date Recorded Patient Health Questionnaire-2 Score 1 06/05/2024 Sex and Gender Information Value Date Recorded Sex Assigned at Male 05/31/2018 10:17 AM CONTENT ASSISTANT Legal Sex Male 4:36 PM CDT Gender Identity Male 05/31/2018 10:17 AM CONTENT ASSISTANT Sexual Orientation Straight 05/31/2018 10 :17 AM CONTENT ASSISTANT Last Filed Vital Signs Vital Sign Reading Time Taken Comments Blood Pressure 110/74 06/05/2024 10:37 AM CONTENT ASSISTANT Pulse 83 06/05/2024 10:37 AM CONTENT ASSISTANT Temperature 36.9 ??C (98.4 ??F) 06/05/2024 1 0:37 AM CONTENT ASSISTANT Respiratory Rate 16 06/05/2024 10:3 7 AM CONTENT ASSISTANT Oxygen Saturation 98% 06/05/2024 10: 37 AM CONTENT ASSISTANT Inhaled Oxygen Concentration - - Weight 110.5 kg (243 lb 9.6 oz) 025 10:37 AM CONTENT ASSISTANT Height 180.3 cm (5' 11 ) 06/05/2024 10: 37 AM CONTENT ASSISTANT Body Mass Index 33.98 06/05/2024 10:37 AM CONTENT ASSISTANT Plan of Treatment Health Maintenance Due Date Last Done Comments Hepatitis B Vaccines (1 of 3 - 19+ 3-dose series) 2004 DTaP, Tdap and Td Vaccines ( 1 - Tdap) 07/24/2014 07/23/2014 Annual Physical 04/12/2025 04/12/2024, 01/05/2021 COVID-19 Vaccine (3 - 2023-2 5 season) 2025 10/03/2020, 09/05/2020 Postponed from 01/29/2024 (Patient Refused) Hepatitis C Completed 04/24/2019 Influenza Adult Completed 04/12/2024, 04/16/2019, 03/28/2018 PHQ-2 (Physician [place]) Completed 06/05/2024 HPV Vaccines Aged Out No longer eligi ble based on patient's age to complete this topic Meningococcal B Vaccine Aged Out No l onger eligible based on patient's age to complete this topic Meningococcal Vaccine Aged Out No jose manuel yahaira eligible based on patient's age to complete this topic Pneumococcal Vaccine: Pediatrics (0 to 5 Years) and At-Risk Patients (6 to 64 Years) Aged Out No longer eligible b ased on patient's age to complete this topic RSV Immunizations Under 20 Months Aged Out No longer eligible b ased on patient's age to complete this topic Procedures Procedure Name Priority Date/Time Associated Diagnosis Comments MRI BRAIN WWO CON Routine 05/28/2024 3:1 [address]ENT [address] Ab[address] of brain HEPATITIS C ANTIBODY Routine 04/24/2019 12:04 PM CONTENT ASSISTANT Dysuria STD exposure from Last 3 Months or Most Recently Relevant to Health Maintenance Results * MRI BRAIN WWO CON (05/28/2024 3:17 PM CONTENT ASSISTANT) Anatomical Region Laterality Modality Head Magnetic Resonan ce 06/05/2024 1:13 PM CONTENT ASSISTANT Impressions 06/05/2024 1:25 PM CONTENT ASSISTANT IMPRESSION: 1. ??Mild to moderate nonspecific patchy FLAIR signal abnormalities of the periventricular and subcortical white matter, most prominent within the frontal lobes, greater than expected for the patient's age. ??Primary differential considerations include ??chronic small vessel ischemic changes and/or CADASIL. 2. ??No acute infarct, abnormal enhancement or evidence of hemorrhage. Referred By: TAN ACOSTA Interpreted By: Zacarias Arizmendi MD, 06/05/2024 1:13 PM Narrative 06/05/2024 1:25 PM CONTENT ASSISTANT [facility] [address] [place] [phone] EXAMINATION:Brain MRI with and without contrast 05/28/2024 INDICATION:Abnormal head CT, positive family history of CADASIL TECHNIQUE: Multiplanar multisequence MR imaging of the head was performed prior to and following administration 20 mL MultiHance contrast intravenously. COMPARISON: Noncontrast head CT 05/15/2024 FINDINGS:No restricted diffusion. ??No acute hemorrhage No mass effect or midline shift or extra axial fluid collection. ??No ventriculomegaly Expected flow voids are noted within the intracranial internal carotid, vertebral and basilar arteries. ??Cerebellopontine angles and internal auditory canals are unremarkable. ??The pituitary gland midline structures are unremarkable. ??Bone marrow signal is within normal limits. Orbits and globes are unremarkable. ??Expected signal voids are seen within the paranasal sinuses and mastoid air cells Mild to moderate patchy areas of increased FLAIR signal are noted within the periventricular and subcortical white matter. No abnormal enhancement. Procedure Note Zacarias Arizmendi MD - 06/05/2024 [facility] [address] [place] [phone] EXAMINATION:Brain MRI with and without contrast 05/28/2024 INDICATION:Abnormal head CT, positive family history of CADASIL TECHNIQUE: Multiplanar multisequence MR imaging of the head was performedprior to and following administration 20 mL MultiHance contrastintravenously. COMPARISON: Noncontrast head CT 05/15/2024 FINDINGS:No restricted diffusion. No acute hemorrhage No mass effect or midline shift or extra axial fluid collection. Noventriculomegaly Expected flow voids are noted within the intracranial internal carotid,vertebral and basilar arteries. Cerebellopontine angles and internalauditory canals are unremarkable. The pituitary gland midline structuresare unremarkable. Bone marrow signal is within normal limits. Orbits and globes are unremarkable. Expected signal voids are seen withinthe paranasal sinuses and mastoid air cells Mild to moderate patchy areas of increased FLAIR signal are noted withinthe periventricular and subcortical white matter. No abnormal enhancement. IMPRESSION: 1. Mild to moderate nonspecific patchy FLAIR signal abnormalities of theperiventricular and subcortical white matter, most prominent within thefrontal lobes, greater than expected for the patient's age. Primarydifferential considerations include chronic small vessel ischemic changesand/or CADASIL. 2. No acute infarct, abnormal enhancement or evidence of hemorrhage. Referred By: TAN ACOSTA Interpreted By: Zacarias Arizmendi MD, 06/05/2024 1:13 PM Tan Acosta MD MRI Final Result * HEPATITIS C ANTIBODY (04/24/2019 12:04 PM CONTENT ASSISTANT) HEPATITIS C AB NON-REACTI VE NON-REACTI VE 04/24/2019 8:48 PM CONTENT ASSISTANT [facility] 04/24/2019 12:0 4 PM CONTENT ASSISTANT [facility] Final Resul t [facility] [address] [place] [address], from Last 3 Months or Most Recently Relevant to Health Maintenance Insurance [facility] Care Teams Pararescue Craftsman Relationship Specialty Start Date End Date Tan Acosta MD [address] [place] [address] PCP - General 01/19/13
--- OUTSIDE RECORDS SUMMARY | 2024-06-25 17:49 | XMS_ITS | Referral Summary ---
Author Organization [facility] Address [address] [place] [id number] Care Team Providers Care Hvac Installation Technician Name Role Phone Tan Acosta MD Primary Care Provider [phone] Encounters Date Type Department Care Team Description 06/20/2024 7:05 PM DIE ATTACHER - 06/20/2024 11:59 PM DIE ATTACHER Hospital Encounter [facility]) [address] [place] [address] Discharge Disposition: Discharge to home or self care 06/20/2024 2:59 PM DIE ATTACHER - 06/20/2024 11:59 PM DIE ATTACHER Hospital Encounter [facility] ([facility]) [address] [place] [address] Discharge Disposition: Discharge to home or self care 05/15/2024 2:01 PM DIE ATTACHER - 05/15/2024 3:10 PM [facility] Emergency Department [address] [place] [id number] Gabriel Duckworth, DO [place] (Primary Dx) Discharge Disposition: Discharge to home or self care from Last 3 Months Allergies No known active allergies Medications multivitamin [...] Lump in the testicle 04/29/2014 Fatigue 01/03/2013 Social History Tobacco Use Types Packs/Day Years [...] on file Legal Sex Male 3:18 PM DIE ATTACHER Gender Identity Not on file Sexual Orientation Not on file Last Filed Vital Signs Vital Sign Reading Time Taken Comments Blood Pressure 120/85 05/15/2024 3:05 PM DIE ATTACHER Pulse 86 05/15/2024 3:05 PM DIE ATTACHER Temperature 37.1 ??C (98.7 ??F) 05/15/2024 1 1:27 AM DIE ATTACHER Respiratory Rate 20 05/15/2024 3:05 PM DIE ATTACHER Oxygen Saturation 98% 05/15/2024 3:05 PM DIE ATTACHER Inhaled Oxygen Concentration - - Weight 107.5 kg (236 lb 15.9 oz) 2023 11:27 AM DIE ATTACHER Height 182.9 cm (6') 05/15/2024 11:27 AM DIE ATTACHER Body Mass Index 32.14 05/15/2024 11:27 AM DIE ATTACHER Plan of Treatment Not on file Procedures Procedure Name Priority Date/Time Associated Diagnosis Comments NEURO MR OUTSIDE REFERENCE Routine 06/20/2024 7:05 PM DIE ATTACHER NEURO CT OUTSIDE REFERENCE Routine 06/20/2024 2:59 PM DIE ATTACHER Diagnosis unknown CT HEAD WO CONTRAST ED 05/15/2024 1 2:01 PM DIE ATTACHER URINALYSIS AND REFLEX TO MICROSCOPIC AND CULTURE STAT 05/15/2024 11:50 AM DIE ATTACHER POCT GLUCOSE DEVICE Routine 05/15/2024 1 1:48 AM DIE ATTACHER EGFR STAT 05/15/2024 11:42 AM DIE ATTACHER DIFFERENTIAL AUTO STAT 05/15/2024 11: 42 AM DIE ATTACHER COMPREHENSIVE METABOLIC PANEL STAT 05/15/2024 11:42 AM DIE ATTACHER CBC WITH AUTO DIFFERENTIAL STAT 05/15/2024 11:42 AM DIE ATTACHER ECG 12-LEAD STAT 05/15/2024 11:40 AM DIE ATTACHER from Last 3 Months Results * Neuro MR Outside Reference (06/20/2024 7:05 PM DIE ATTACHER) Impressions [facility] - 06/20/2024 7:05 PM DIE ATTACHER These images are for Reference purposes only and have not been reviewed by [facility] Radiology. ??There will be no report generated by a [facility] Radiologist. Narrative [facility] - 06/20/2024 7:05 PM DIE ATTACHER EXAMINATION: ??Images For Reference Purposes Only Zacarias Grady MD IMG MRI PROCEDURES Final R esult Performing Organization Address [facility] Co de Phone Number [facility] * Neuro CT Outside Reference (06/20/2024 2:59 PM DIE ATTACHER) Impressions [facility] - 06/20/2024 2:59 PM DIE ATTACHER These images are for Reference purposes only and have not been reviewed by [facility] Radiology. ??There will be no report generated by a [facility] Radiologist. Narrative [facility] - 06/20/2024 2:59 PM DIE ATTACHER EXAMINATION: ??Images For Reference Purposes Only Zacarias Grady MD IMG CT PROCEDURES Final Re sult [facility] * CT Head WO Contrast (05/15/2024 12:01 PM DIE ATTACHER) Anatomical Region Laterality Modality Head and Neck N/A Computed Tomogra phy 05/15/2024 12:4 3 PM DIE ATTACHER Narrative 05/15/2024 12:50 PM DIE ATTACHER EXAM DESCRIPTION: CT HEAD WO CONTRAST REASON [...] 12:50 PM - Electronically signed by ??Heri Sue M.D. NS: NS D: ??05/15/2024 12:50 PM T: ??05/15/2024 12:50 PM Report ID: [id number] Reading Location: ??[id number] Procedure Note Heri Sue MD - 05/15/2024 [...] Sagittal and coronal images reconstructed. Images stored onTalento al Aula. Automated exposure control was used as a [...] Heri Sue M.D. NS: NS Report ID: [id number] Reading Location: [id number] Gabriel Duckworth DO IMG CT PROCEDURES Final Res ult * Urinalysis reflex to microscopic and culture Urine (05/15/2024 11:50 AM DIE ATTACHER) Color, ur Yellow Yellow Comment:Testing performed by : [address] [address] Clarity, ur Clear Clear [facility] Comment:Testing performed by : [address] [address] Specific gravity, ur 1.021 1.003 - 1.030 [facility] Comment:Testing performed by : [address] [address] pH, urine 7.5 [facility] Comment: Interpretive Data ? Urine pH is affected by diet, medications, systemic acid-base disturbances, and renal tubular function. ??pH may affect urinary stone formation. ??For example, urine pH below 6.0 may help reduce the tendency for calcium phosphate stones and pH greater than 6.0 may reduce the tendency for uric acid stone formation. Source: [facility] [employer] Current Interpretive Data was last revised on 2017 Testing performed by: [address] [address] Protein, ur ql Negative Negative [facility] Comment:Testing performed by : [address] [address] Glucose, ur ql Negative Negative [facility] Comment:Testing performed by : [address] [address] Ketones, ur Negative Negative [facility] Comment:Testing performed by : [address] [address] Bilirubin, ur Negative Negative [facility] Comment:Testing performed by : [address] [address] Blood, ur Negative Negative [facility] Comment:Testing performed by : [address] [address] Urobilinogen, ur <2.0 <2.0 mg/dL [facility] Comment:Testing performed by : [address] [address] Nitrite, ur Negative Negative [facility] Comment:Testing performed by : [address] [address] Leukocyte esterase, ur Negative Negative [facility] Comment:Testing performed by : [facility], [address] [place] [address]., [address] UA reflex comment Reflex conditions for microscopic UA and culture not met. [facility] Comment:Testing performed by : [facility], [address] [place] [address]., [address] Urine 05/15/2024 11:5 0 AM DIE ATTACHER 05/15/2024 12:03 PM DIE ATTACHER Gabriel Duckworth DO LAB MICROBIOLOGY - GENERAL ORDERABLES Final Result Performing Organization Address [facility] Co de Phone Number [facility] [address] [place] [address] [place] [address] * POCT glucose (05/15/2024 11:48 AM DIE ATTACHER) [facility] Glucose, POC 85 70 - 199 mg/dL Comment:Testing performed by : [address] [address] Blood 05/15/2024 11:4 8 AM DIE ATTACHER 05/15/2024 11:48 AM DIE ATTACHER Notinfile Unknown LAB POCT ORDERABLES - DEVICE F inal Result Performing Organization Address [facility] Co de Phone Number [address] [place] [address] * eGFR (05/15/2024 11:42 AM DIE ATTACHER) Pathologist [facility] eGFR >90 >=60 mL/min/1. 73 m2 Comment: [...] was last reviewed 2021. Testing performed by: [address] [address] Blood 05/15/2024 11:4 2 AM DIE ATTACHER 05/15/2024 12:03 PM DIE ATTACHER Gabriel Duckworth DO LAB BLOOD ORDERABLES Final Result [place] [id number] [facility] Department of Laboratories [place], [place] [id number] * Differential, auto (05/15/2024 11:42 AM DIE ATTACHER) Neutrophil abs 4.7 1.5 - 6.5 K/cumm Comment:Testing performed by : [address] [address] Imm gran abs 0.0 0.0 - 0.1 K/cumm [facility] Comment:Testing performed by : [address] [address] Lymphocyte abs 1.5 0.8 - 3.3 K/cumm [facility] Comment:Testing performed by : [address] [address] Monocyte abs 0.5 0.2 - 0.8 K/cumm [facility] Comment:Testing performed by : [address] [address] Eosinophil abs 0.1 0.0 - 0.5 K/cumm [facility] Comment:Testing performed by : [address] [address] Basophil abs 0.0 0.0 - 0.1 K/cumm [facility] Comment:Testing performed by : [address] [address] Neutrophil pct 68.0 % [facility] Comment: Interpretive Data Percent cell count reference ranges are not reported, since discordance with absolute values may lead to misinterpretation of CBC data. Current Interpretive Data was last revised on 2017. Testing performed by: [address] [address] Imm gran pct 0.4 % [facility] Comment: Interpretive Data Percent cell count reference ranges are not reported, since discordance with absolute values may lead to misinterpretation of CBC data. Current Interpretive Data was last revised on 2017. Testing performed by: [address] [address] Lymphocyte pct 22.3 % [facility] Comment: Interpretive Data Percent cell count reference ranges are not reported, since discordance with absolute values may lead to misinterpretation of CBC data. Current Interpretive Data was last revised on 2017. Testing performed by: [address] [address] Monocyte pct 7.7 % [facility] Comment: Interpretive Data Percent cell count reference ranges are not reported, since discordance with absolute values may lead to misinterpretation of CBC data. Current Interpretive Data was last revised on 2017. Testing performed by: [address] [address] Eosinophil pct 1.2 % [facility] Comment: Interpretive Data Percent cell count reference ranges are not reported, since discordance with absolute values may lead to misinterpretation of CBC data. Current Interpretive Data was last revised on 2017. Testing performed by: [address] [address] Basophil pct 0.4 % [facility] Comment: Interpretive Data Percent cell count reference ranges are not reported, since discordance with absolute values may lead to misinterpretation of CBC data. Current Interpretive Data was last revised on 2017. Testing performed by: [address] [address] Blood 05/15/2024 11:4 2 AM DIE ATTACHER 05/15/2024 12:03 PM DIE ATTACHER us Gabriel Duckworth DO LAB BLOOD ORDERABLES Final Result [facility] [address] [facility] Department [place] [address] * CBC with auto differential (05/15/2024 11:42 AM DIE ATTACHER) WBC 6.9 3.8 - 9.9 K/cumm Comment:Testing performed by : [address] [address] Hgb 15.1 13.0 - 17.5 g/dL [facility] Comment:Testing performed by : [address] [address] Hct 45.4 38.9 - 50.3 % [facility] Comment:Testing performed by : [address] [address] Plt 285 150 - 400 K/cumm [facility] Comment:Testing performed by : [address] [address] MPV 10.1 9.1 - 12.3 fL [facility] Comment:Testing performed by : [address] [address] RBC 5.02 4.30 - 5.80 M/cumm [facility] Comment:Testing performed by : [address] [address] MCV 90.4 81.3 - 96.4 fL [facility] Comment:Testing performed by : [address] [address] MCH 30.1 27.1 - 33.3 pg [facility] [place] Comment:Testing performed by : [address] [address] MCHC 33.3 32.3 - 35.7 g/dL [facility] Comment:Testing performed by : [address] [address] RDW CV 13.2 11.1 - 14.9 % [facility] Comment:Testing performed by : [address] [address] RDW SD 42.9 35.7 - 48.1 fL [facility] [place] Comment:Testing performed by : [address] [address] NRBC abs 0.00 0.00 - 0.01 K/cumm [facility] Comment:Testing performed by : [address] [address] Blood 05/15/2024 11:4 2 AM DIE ATTACHER 05/15/2024 12:03 PM DIE ATTACHER us Gabriel Duckworth DO LAB BLOOD ORDERABLES Final Result [facility] Department [place] [address] * Comprehensive metabolic panel (05/15/2024 11:42 AM DIE ATTACHER) Sodium 140 135 - 145 mmol/L Comment:Testing performed by : [address] [address] Potassium, pl 4.1 3.3 - 4.9 mmol/L [facility] Comment:Testing performed by : [address] [address] Chloride 103 97 - 110 mmol/L [facility] Comment:Testing performed by : [address] [address] CO2 28 22 - 32 mmol/L [facility] Comment:Testing performed by : [address] [address] Anion gap 9 2 - 15 mmol/L [facility] Comment:Testing performed by : [address] [address] BUN 11 6 - 25 mg/dL [facility] Comment:Testing performed by : [address] [address] Creatinine 1.00 0.80 - 1.30 mg/dL [facility] Comment:Testing performed by : [address] [address] Glucose 90 70 - 199 mg/dL [facility] Comment: Interpretive Data Fasting glucose >/= 126 [...] classification and Diagnosis of Diabetes Diabetes Care 2021; 46: S19-S40. Current interpretive data was last revised 2022. Testing performed by: [address] [address] Calcium 9.6 8.5 - 10.3 mg/dL [facility] Comment:Testing performed by : [address] [address] Bilirubin, total 0.3 0.1 - 1.2 mg/dL [facility] Comment:Testing performed by : [address] [address] Protein, pl 7.8 6.5 - 8.5 g/dL [facility] Comment:Testing performed by : [address] [address] Albumin 4.5 3.5 - 5.0 g/dL [facility] Comment:Testing performed by : [address] [address] Alk phos 103 40 - 130 Units/L [facility] Comment:Testing performed by : [address] [address] ALT 19 7 - 55 Units/L [facility] Comment:Testing performed by : [address] [address] AST 19 10 - 50 Units/L [facility] Comment:Testing performed by : [address] [address] Blood 05/15/2024 11:4 2 AM DIE ATTACHER 05/15/2024 12:03 PM DIE ATTACHER us Gabriel Duckworth DO LAB BLOOD ORDERABLES Final Result Performing Organization Address City/[facility] Co de Phone Number [facility] [address] [facility] Department [place] [address] * ECG 12 lead (05/15/2024 11:40 AM DIE ATTACHER) Ventricular Rate EKG/Min 86 BPM [facility] Atrial Rate 86 BPM [facility] MD-Interval (MSEC) 148 ms [facility] QRS-Interval (MSEC) 96 ms [facility] QT-Interval (MSEC) 362 ms [facility] QTc 433 ms [facility] P Metz 37 degrees [facility] R Metz 29 degrees [facility] T Metz 29 degrees [facility] Diagnosis Normal sinus rhythm Normal ECG No previous ECG available for comparison Confirmed by SULTAN COON M.D. ([id number]) on 05/15/2024 4:35:11 PM [facility] 05/15/2024 11:4 0 AM DIE ATTACHER 05/15/2024 4:35 PM DIE ATTACHER Gabriel Duckworth DO ECG ORDERABLES Final Resul t Performing Organization Address [facility] Phone Number [facility] from Last 3 Months Insurance [facility] [employer] Care Teams Hvac Installation Technician Relationship Specialty Start Date End Date Tan Acosta MD [address] [place] [id number] PCP - General Internal Medicine 12/06/22
[2024-06-25 18:45] VITALS: BP 128/85; PULSE 102; RESP 18; TEMP 36.5; O2SAT 100
--- NOTE | 2024-06-25 19:13 | ED_ITS ---
HPI - URI/Sore Throat General Chief Complaint: Upper Respiratory Infection Stated Complaint: sore throat / cough / congestion / fever Time Seen by Provider: 06/25/24 19:14 Source: patient, RN notes reviewed and old records reviewed Mode of arrival: ambulatory Limitations: no limitations History of Present Illness HPI Narrative: patient presents with complaints of 3 days of flu-like symptoms. He reports that he is concerned because his daughter recently had influenza and strep throat. He has been taking [id number] medications with moderate relief Related Data Home Medications ?Medication ?Instructions ?Recorded ?Confirmed ?Last Taken ?Type venlafaxine 75 mg capsule,extended mg PO 06/25/24 Unknown History release 24 hr Allergies Allergy/AdvReac Type Severity Reaction Status Date / Time No Known Allergies Allergy Verified 06/25/24 19:22 Review of Systems Review of Systems: All systems reviewed & are unremarkable except as noted in HPI and below Constitutional: Constitutional: Reports no additional constitutional complaints, Reports fever(s), Reports headache(s) and Reports lethargy ENT: Reports system reviewed and no additional complaints, except as documented, Reports nasal congestion, Reports nasal discharge and Reports sore throat Cardiovascular: Cardiovascular: Reports no additional cardiovascular complaints Respiratory: Respiratory: Reports no additional respiratory complaints and Reports cough Gastrointestinal: Gastrointestinal: Reports no additional gastrointestinal complaints [facility] Past Medical History Medical History (Updated 06/25/24 @ 19:54 by Audrey Green APRN) History of anxiety Family History Family History Mother Family history of blood dyscrasia Social History Social History Smoking status: Never smoker Alcohol intake: current Substance use type: does not use Comments At the time of my signature, I reviewed and agree with the nursing past medical, surgical, social, and family history. There is no relevant family history pertinent to the patient complaint. Exam Const: General: cooperative, no acute distress, alert and awake Orientation/consciousness: oriented to person, oriented to place and oriented to time HENMT: Head: normal to inspection Ears: TM's normal bilaterally Mouth: Yes moist mucous membranes Throat: posterior oropharynx abnormal erythema Resp: Effort & Inspection: normal respiratory effort and able to speak in complete sentences Auscultation: clear to auscultation bilaterally, no crackles, no rales, no rhonchi and no wheezes Cardio: Palpation: normal PMI Rate: regular rate Rhythm: regular rhythm Heart sounds: S1 normal heart sound present and S2 normal heart sound present Neuro: General: oriented to person, oriented to place and oriented to time Cranial nerves: Yes CN's II-XII intact bilaterally Psych: Appearance: grossly normal Thought process: Normal thought process present Insight: Good insight present (Psych) Judgement: Good judgement present (Psych) Course Course Level of Care: Express Care Visit Vital Signs Vital signs: Vital Signs Temperature 97.7 F 06/25/24 18:45 Pulse Rate 102 H 06/25/24 18:45 Respiratory Rate 18 06/25/24 18:45 Blood Pressure 128/85 06/25/24 18:45 Pulse Oximetry 100 06/25/24 18:45 Oxygen Delivery Room Air 06/25/24 18:45 Temperature 97.7 F 06/25/24 18:45 Pulse Rate 102 H 06/25/24 18:45 Respiratory Rate 18 06/25/24 18:45 Blood Pressure 128/85 06/25/24 18:45 Pulse Oximetry 100 06/25/24 18:45 Oxygen Delivery Room Air 06/25/24 18:45 Reviewed MDM - URI/Sore Throat MDM Narrative Medical decision making narrative: negative flu, negative COVID, negative strep. Culture pending. Patient advised to use [id number]-[id number] medications to treat symptoms. Nontoxic appearing, stable for discharge home. Discharge instructions reviewed with patient, as well as provided in writing per nursing staff. The instructions also include specific and strict return/GO TO THE ER as well as f/u information. All questions have been answered, and the patient deny any further questions with discharge and discharge plan. Some parts of this dictation were generated by voice recognition software and may contain typographical and/or grammatical inaccuracies. Differential Diagnosis Differential diagnosis: Likely upper respiratory infection, otitis media, sinusitis, bronchitis, influenza and pharyngitis Medical Records Attestation: I reviewed the patient's medical records. Lab Data Attestation: I reviewed the patient's lab results. Labs: Lab Results 06/25/24 06/25/24 Range/Units 19:45 19:49 POC Influenza A Ag Negative (Negative) POC Influenza B Ag Negative (Negative) POC SARS CoV-2 Ag Negative (Negative) POC Grp A Strep Screen Negative (Negative) Discharge Plan Discharge Clinical Impression: Viral infection Patient Disposition: Home, Self-Care Condition: Stable Instructions: Antibiotic Form, Viral Syndrome (ED) Additional Instructions: use Tylenol and/ or ibuprofen per package instructions as needed for fever or pain. Use cough drops, throat sprays, or other gcgb-vti-jxlksdw remedies of choice. Follow up package instructions. Follow-up with primary care provider. Emergency department for new or worse symptoms Patient Language: Angolan Prescriptions: No Action venlafaxine 75 mg capsule,extended release 24hr PO lorazepam 0.5 mg tablet 0.5 mg PO BID PRN (Reason: anxiety) Qty: 7 0RF Follow-up/Referrals: Dave,Tan Johnson MD [Primary Care Provider] - 2 Weeks Stand Alone Forms: Work/School Release IP Time of Disposition: 19:54
[2024-06-25 19:47] LABS: EDSTREPNEGPOS1 Negative (Negative)
[2024-06-25 19:50] LABS: EDCOVIDSCREEN Negative (Negative); EDINFLUASCREEN Negative (Negative); EDINFLUBSCREEN Negative (Negative)
== END 2024-06-25 19:58 | disposition home or self-care (01) ==
PROVIDERS: Emergency Provider Nurse Practitioner Family; PCP Internal Medicine
DX: B34.9 Viral infection, unspecified (principal); Z20.822 Contact with and (suspected) exposure to COVID-19
CPT/HCPCS: 87081; 87426; 87804; 87880; 99213; G0463

== ENCOUNTER 2025-03-23 16:54 | Emergency (ER) | payer OTHER, SELFPAY ==
--- OUTSIDE RECORDS SUMMARY | 2017-01-04 07:30 | XMS_ITS | Continuity of Care Document ---
Author Organization [employer] Address [address] [place] [id number] Phone Care Team Providers Care Care Technician Name Role Phone Nicole Urban DIAZ Unavailable Unavailable Procedures Procedure Date Therapeutic Exercise Neuromuscular Re-Ed Manual Therapy Hot or Cold Pack Therapeutic Exercise Neuromuscular Re-Ed Manual Therapy Therapeutic Exercise Neuromuscular Re-Ed Manual Therapy Hot or Cold Pack Therapeutic Exercise Neuromuscular Re-Ed Manual Therapy Hot or Cold Pack Therapeutic Exercise Neuromuscular Re-Ed Manual Therapy Hot or Cold Pack Therapeutic Exercise Neuromuscular Re-Ed Manual Therapy Hot or Cold Pack Therapeutic Exercise Neuromuscular Re-Ed Manual Therapy Hot or Cold Pack Therapeutic Exercise Neuromuscular Re-Ed Manual Therapy Hot or Cold Pack Therapeutic Exercise Neuromuscular Re-Ed Manual Therapy Hot or Cold Pack Therapeutic Exercise Neuromuscular Re-Ed Manual Therapy Hot or Cold Pack Progress Note Therapeutic Exercise Neuromuscular Re-Ed Manual Therapy Hot or Cold Pack Therapeutic Exercise Neuromuscular Re-Ed Manual Therapy Hot or Cold Pack Therapeutic Exercise Neuromuscular Re-Ed Manual Therapy Hot or Cold Pack Therapeutic Exercise Neuromuscular Re-Ed Manual Therapy Hot or Cold Pack Therapeutic Exercise Neuromuscular Re-Ed Manual Therapy Hot or Cold Pack Therapeutic Exercise Neuromuscular Re-Ed Manual Therapy Hot or Cold Pack Therapeutic Exercise Neuromuscular Re-Ed Manual Therapy Hot or Cold Pack Therapeutic Exercise Neuromuscular Re-Ed Manual Therapy Therapeutic Exercise Manual Therapy PT Evaluation Low Complexity Screening Neuromuscular Re-Ed each 15 min 013 Therapeutic Exercise each 15 min 2012 Neuromuscular Re-Ed each 15 min 013 Therapeutic Exercise each 15 min 2012 Therapeutic Exercise each 15 min 2012 Neuromuscular Re-Ed each 15 min 013 Neuromuscular Re-Ed each 15 min 013 Therapeutic Exercise each 15 min 2012 Therapeutic Exercise each 15 min 2012 Therapeutic Exercise each 15 min 2012 Therapeutic Exercise each 15 min 2012 Therapeutic Exercise each 15 min 2012 Therapeutic Exercise each 15 min 2012 PT Evaluation Therapeutic Exercise each 15 min 2012 Short Visit Less Than 8 Min Therapeutic Exercise each 15 min 2011 Therapeutic Exercise each 15 min 2011 Therapeutic Exercise each 15 min 2011 Therapeutic Exercise each 15 min 2011 Therapeutic Exercise each 15 min 2011 PT Evaluation Therapeutic Activities each 15 min Advance Directives Directive Yes / No Effective Date File Name No Information Encounters Encounter Description Practice Location Reason(s) For Visit Diagnoses Date Provider Providers Copied on Encounter [employer] [address], [id number], tel:[phone] [employer] No Information 7 Corey Duggan. . [employer] [facility], [address], [id number], tel:[phone] [facility] [place] [facility] No Information 7 Carl Londono. . Referring Provider: Hal Luz, [address] [place] [address], [id number]. tel:[phone] [employer] [address], [id number], tel:[phone] [facility] [place] [facility] No Information 7 Corey Duggan. . Referring Provider: Hal Luz, [address] [place] [address], [address]. tel:[phone] [employer] [address], [id number], tel:[phone] [facility] No Information 7 Corey Duggan. . Referring Provider: Hal Luz, [address] [place] [address], [address]. tel:[phone] [employer] [address], [id number], tel:[phone] [facility] No Information 0 7 Corey Duggan. . Referring Provider: Hal Luz, [address] [place] [address], [address]. tel:[phone] [employer] [address], [id number], tel:[phone] [facility] No Information Brian-1 5-201 7 Nicole Urban. . Referring Provider: Hal Luz, [address] [place] [address], [address]. tel:[phone] [employer] [facility], [address] [address], [place], [place], [id number], tel:[phone] [facility] No Information Brian-1 3-201 7 Nicole Urban. . Referring Provider: Hal Luz, [address] [place] [address], [address]. tel:[phone] [employer] [facility], [address] [address], [place], [place], [id number], [place] tel:[phone] [facility] No Information Oct-1 2-201 7 Nicole Urban. . Referring Provider: Hal Luz, [address] [place] [address], [address]. tel:[phone] [employer] [facility], [address], [id number], [place] tel:[phone] [facility] [place] [facility] No Information Brian-0 8-201 7 Nicole Urban. . Referring Provider: Hal Luz, [address] [place] [address], [address]. tel:[phone] [employer] [address], [id number], [place] tel:[phone] [facility] No Information Brian-0 2-201 7 Nicole Urban. . Referring Provider: Hal Luz, [address] [place] [address], [address]. tel:[phone], [address] [address], [place], [place], [id number], [place] tel:[phone] [facility] [place] [facility] No Information 3 1-201 7 Nicole Urban. . Referring Provider: Hal Luz, [address] [place] [address], [address]. tel:[phone] [employer] [facility], [address] [address], [place], [place], [id number], [place] tel:[phone] [facility] [place] [facility] No Information 6-201 7 Nicole Urban. . Referring Provider: Hal Luz, [address] [place] [address], [address]. tel:[phone] [employer] [facility], [address] [address], [place], [place], [id number], tel:[phone] [facility] No Information 4-201 7 Nicole Urban. . Referring Provider: Hal Luz, [address] [place] [address], [address]. tel:[phone] [employer] [facility], [address] [address], [place], [place], [id number], tel:[phone] [facility] [place] [facility] No Information 9-201 7 Nicole Urban. . Referring Provider: Hal Luz, [address] [place] [address], [address]. tel:[phone] [employer] [facility], [address], [id number], tel:[phone] [facility] No Information 7-201 7 Nicole Urban. . Referring Provider: Hal Luz, [address] [place] [address], [address]. tel:[phone] [employer] [facility], [address] [place] [address], [id number], tel:[phone] [facility] No Information 5-201 7 Nicole Urban. . Referring Provider: Hal Luz, [address] [place] [address], [address]. tel:[phone] [employer] [address], [id number], tel:[phone] [facility] No Information 3-201 7 Nicole Urban. . Referring Provider: Hal Luz [address] [place] [address], [address]. tel:[phone] [employer] [address], [id number], tel:[phone] [facility] No Information 0 7 Corey Duggan. . Referring Provider: Hal Luz, [address] [place] [address], [address]. tel:[phone] [employer] [address], [id number], tel:[phone] [facility] No Information 8 7 Corey Duggan. . Referring Provider: Hal Luz, [address] [place] [address], [address]. tel:[phone] [employer] [address] [address], [place], [place], [id number], tel:[phone] [facility] Strain of right Achilles tendon, subsequent encounterAnkle weaknessAcute right ankle painRight leg weakness 4 7 Corey Duggan. . Referring Provider: Hal Luz, [address] [place] [address], [address]. tel:[phone] [employer] [address], [id number], tel:[phone] [facility] No Information 6 3 No Information Referring Provider: Physician Mika. [employer] [address], [id number], tel:[phone] [facility] Other joint derangement, not elsewhere classified, involving shoulder region Oct-2 0-201 3 Erb Dash. . Referring Provider: Zulma Velasquez, [address] [place], [address]. tel:[phone] [employer] [address] [address], [place], [place], [id number], tel:[phone] [facility] Other joint derangement, not elsewhere classified, involving shoulder region Oct- 8-201 3 Erb Dash. . Referring Provider: Zulma Velasquez, [address] [place], [address]. tel:[phone] [employer] [address], [place], [place], [id number], [place] tel:[phone] [facility] Other joint derangement, not elsewhere classified, involving shoulder region Brian-1 3-201 3 Erb Dash. . Referring Provider: Zulma Velasquez, [address] [place], [address]. tel:[phone], [address], [place], [place], [id number], [place] tel:[phone] [facility] Other joint derangement, not elsewhere classified, involving shoulder region Brian-1 2-201 3 Erb Dash. . Referring Provider: Manish Mckenna, [address] [place], [address]. tel:[phone] [employer] [address] [place] [address], [id number], [place] tel:[phone] [facility] Other joint derangement, not elsewhere classified, involving shoulder region Brian-0 6-201 3 Erb Dash. . Referring Provider: Zulma Velasquez, [address] [place], [address]. tel:[phone] [employer] [address] [facility] [address] [place] [address], [id number], [place] tel:[phone] [facility] Other joint derangement, not elsewhere classified, involving shoulder region Brian-0 4-201 3 Erb Dash. . Referring Provider: Zulma Velasquez, [address] [place], [address]. tel:[phone] [employer] [address] [facility] [address] [place] [address], [id number], [place] tel:[phone] [facility] Other joint derangement, not elsewhere classified, involving shoulder region May-3 0-201 3 Erb Dash. . Referring Provider: Zulma Velasquez, [address] [place], [address]. tel:[phone] [employer] [address], [place], [place], [id number], [place] tel:[phone] [facility] Other joint derangement, not elsewhere classified, involving shoulder region 2 2-201 3 Erb Dash. . Referring Provider: Zulma Velasquez, [address] [place], [address]. tel:[phone] [employer] [address], [place], [place], [id number], [place] tel:[phone] [facility] Other joint derangement, not elsewhere classified, involving shoulder region 0-201 3 Erb Dash. . Referring Provider: Zulma Velasquez, [address] [place], [address]. tel:[phone] [employer] [address], [place], [place], [id number], [place] tel:[phone] [facility] Other joint derangement, not elsewhere classified, involving shoulder region 5-201 3 Erb Dash. . Referring Provider: Zulma Velasquez, [address] [place], [address]. tel:[phone] [employer] [address], [place], [place], [id number], [place] tel:[phone] [facility] Other joint derangement, not elsewhere classified, involving shoulder region 3-201 3 Erb Dash. . Referring Provider: Manish Mckenna, [address] [place], [address]. tel:[phone] [employer] [address], [place], [place], [id number], [place] tel:[phone] [facility] Other joint derangement, not elsewhere classified, involving shoulder regionPain in joint involving shoulder region 1-201 2 Erb Dash. . Referring Provider: Zulma Velasquez, [address] [place], [address]. tel:[phone] [employer] [address], [place], [place], [id number], [place] tel:[phone] [facility] Other joint derangement, not elsewhere classified, involving shoulder regionPain in joint involving shoulder region 2 Erb Dash. . Referring Provider: Zulma Velasquez, [address] [place], [address]. tel:[phone], [address], [place], [place], [id number], [place] tel:[phone] [facility] Other joint derangement, not elsewhere classified, involving shoulder regionPain in joint involving shoulder region 2 Erb Dash. . Referring Provider: Zulma Velasquez, [address] [place], [address]. tel:[phone] [employer] [address] [facility], [place], [place], [id number], [place] tel:[phone] [facility] Pain in joint involving shoulder regionOther joint derangement, not elsewhere classified, involving shoulder region 0 2 Erb Dash. . Referring Provider: Zulma Velasquez, [address] [place], [address]. tel:[phone] [employer] [address] [facility], [place], [place], [id number], [place] tel:[phone] [facility] Other joint derangement, not elsewhere classified, involving shoulder regionPain in joint involving shoulder region 0 2 Erb Dash. . Referring Provider: Zulma Velasquez, [address] [place], [address]. tel:[phone] [employer] [address] [facility], [place], [id number], [place] tel:[phone] [facility] Pain in joint involving shoulder regionOther joint derangement, not elsewhere classified, involving shoulder region 2 Erb Dash. . Referring Provider: Zulma Velasquez, [address] [place], [address]. tel:[phone] [employer] [address] [facility] [address], [place], [place], [id number], [place] tel:[phone] [facility] Other joint derangement, not elsewhere classified, involving shoulder regionPain in joint involving shoulder region 2 Madisyn Bowling. . Referring Provider: Zulma Velasquez, [address] [place], [address]. tel:[phone] Family History Family Member Type Diagnosis Age At Onset No Information Payers Payer name Insurance type Covered republican ID Authorgeetha patel(s) [facility] [id number] Social History Type Description Quantity Date Captured Comments Sex Male Smoking Status No Information Chief Complaint And Reason For Visit No Information Reason For Referral Reason For Referral No Information History Of Present Illness Encounter Date Complaint History Of Prese nt Illness No Information Functional Status Date Functional Assessmen t No Information Instructions Date Instruction Additional Infor mation No Information Assessments Type Assessment Date No Information Patient Care Teams Name Effective Dates (start - stop) Status Members No Information
--- OUTSIDE RECORDS SUMMARY | 2017-01-04 07:30 | XMS_ITS | Continuity of Care Document ---
Author Organization [facility] Address [address] [place] [id number] Phone Care Team Providers Care Service Delivery Director Name Role Phone Nicole Urban DIAZ Unavailable [...] Diagnoses Date Provider Providers Copied on Encounter [facility], [address], [id number], tel:[phone] [facility] No Information 7 Corey Duggan. . [facility], [address], [id number], tel:[phone] [facility] No Information 7 Carl Londono. . Referring Provider: Hal Luz, [address] [place] [address], [address]. tel:[phone] [facility], [address], [id number], tel:[phone] [facility] No Information 7 Corey Duggan. . Referring Provider: Hal Luz, [address] [place] [address], [id number]. tel:[phone] [facility], [address], [id number], tel:[phone] [facility] No Information 7 Corey Duggan. . Referring Provider: Hal Luz, [address] [place] [address], [id number]. tel:[phone] [facility], [address], [id number], tel:[phone] [facility] No Information 0 7 Corey Duggan. . Referring Provider: Hal Luz, [address] [place] [address], [address]. tel:[phone] [facility], [address], [id number], tel:[phone] [facility] No Information Brian-1 5-201 7 Nicole Urban. . Referring Provider: Hal Luz, [address] [place] [address], [address]. tel:[phone] [facility], [address] [address], [place], [place], [id number], tel:[phone] [facility] No Information Brian-1 3-201 7 Nicole Urban. . Referring Provider: Hal Luz, [address] [place] [address], [address]. tel:[phone] [facility], [address] [address], [place], [place], [id number], [place] tel:[phone] [facility] No Information Oct-1 2-201 7 Nicole Urban. . Referring Provider: Hal Luz, [address] [place] [address], [address]. tel:[phone] [facility], [address], [id number], [place] tel:[phone] [facility] No Information Brian-0 8-201 7 Nicole Urban. . Referring Provider: Hal Luz, [address] [place] [address], [address]. tel:[phone] [facility], [address], [id number], [place] tel:[phone] [place] [facility] [place] No Information Brian-0 2-201 7 Nicole Urban. . Referring Provider: Hal Luz, [address] [place] [address], [address]. tel:[phone], [address] [address], [place], [place], [id number], [place] tel:[phone] [facility] No Information 3 1-201 7 Nicole Urban. . Referring Provider: Hal Luz, [address] [place] [address], [address]. tel:[phone] [facility], [address] [address], [place], [place], [id number], [place] tel:[phone] [facility] No Information 6-201 7 Nicole Urban. . Referring Provider: Hal Luz, [address] [place] [address], [address]. tel:[phone] [facility], [address] [address], [place], [place], [id number], tel:[phone] [facility] No Information 4-201 7 Nicole Urban. . Referring Provider: Hal Luz, [address] [place] [address], [address]. tel:[phone] [facility], [address] [address], [place], [place], [id number], tel:[phone] [place] [facility] No Information 9-201 7 Nicole Urban. . Referring Provider: Hal Luz, [address] [place] [address], [address]. tel:[phone] [facility], [address], [id number], tel:[phone] [facility] No Information 7-201 7 Nicole Urban. . Referring Provider: Hal Luz, [address] [place] [address], [address]. tel:[phone] [facility], [address] [place] [address], [id number], tel:[phone] [facility] [place] No Information 5-201 7 Nicole Urban. . Referring Provider: Hal Luz, [address] [place] [address], [address]. tel:[phone] [facility], [address], [id number], tel:[phone] [place] [facility] [place] No Information 3-201 7 Nicole Urban. . Referring Provider: Hal Luz [address] [place] [address], [address]. tel:[phone] [facility], [address], [id number], tel:[phone] [facility] No Information 0 7 Corey Duggan. . Referring Provider: Hal Luz, [address] [place] [address], [address]. tel:[phone] [facility], [address], [id number], tel:[phone] [facility] No Information 8 7 Corey Duggan. . Referring Provider: Hal Luz, [address] [place] [address], [address]. tel:[phone] [facility], [address] [address], [place], [place], [id number], tel:[phone] [facility] Strain of right Achilles tendon, subsequent encounterAnkle weaknessAcute right ankle painRight leg weakness 4 7 Corey Duggan. . Referring Provider: Hal Luz, [address] [place] [address], [id number]. tel:[phone] [facility], [address], [id number], tel:[phone] [facility] No Information 6 3 No Information Referring Provider: Physician Mika. [facility], [address], [id number], tel:[phone] [facility] Other joint derangement, not elsewhere classified, involving shoulder region Oct-2 0-201 3 Erb Dash. . Referring Provider: Zulma Velasquez, [address] [place], [address]. tel:[phone] [facility], [address] [address], [place], [place], [id number], tel:[phone] [facility] Other joint derangement, not elsewhere classified, involving shoulder region Oct- 8-201 3 Erb Dash. . Referring Provider: Zulma Velasquez, [address] [place], [address]. tel:[phone] [facility], [address], [place], [place], [id number], [place] tel:[phone] [facility] Other joint derangement, not elsewhere classified, involving shoulder region Brian-1 3-201 3 Erb Dash. . Referring Provider: Zulma Velasquez, [address] [place], [address]. tel:[phone] [facility], [address], [place], [place], [id number], [place] tel:[phone] [facility] Other joint derangement, not elsewhere classified, involving shoulder region Brian-1 2-201 3 Erb Dash. . Referring Provider: Manish Mckenna, [address] [place], [address]. tel:[phone] [facility], [address] [place] [address], [id number], [place] tel:[phone] [facility] Other joint derangement, not elsewhere classified, involving shoulder region Brian-0 6-201 3 Erb Dash. . Referring Provider: Zulma Velasquez, [address] [place], [address]. tel:[phone] [facility], [address] [facility] [address] [place] [address], [id number], [place] tel:[phone] [place] Other joint derangement, not elsewhere classified, involving shoulder region Brian-0 4-201 3 Erb Dash. . Referring Provider: Zulma Velasquez, [address] [place], [address]. tel:[phone] [facility], [address] [facility] [address] [place] [address], [id number], [place] tel:[phone] [place] [facility] [place] Other joint derangement, not elsewhere classified, involving shoulder region May-3 0-201 3 Erb Dash. . Referring Provider: Zulma Velasquez, [address] [place], [address]. tel:[phone] [facility], [address], [place], [place], [id number], [place] tel:[phone] [place] [facility] [place] Other joint derangement, not elsewhere classified, involving shoulder region 2 2-201 3 Erb Dash. . Referring Provider: Zulma Velasquez, [address] [place], [address]. tel:[phone] [facility], [address], [place], [place], [id number], [place] tel:[phone] [place] [facility] [place] Other joint derangement, not elsewhere classified, involving shoulder region 0-201 3 Erb Dash. . Referring Provider: Zulma Velasquez, [address] [place], [address]. tel:[phone] [facility], [address], [place], [place], [id number], [place] tel:[phone] [place] [facility] [place] Other joint derangement, not elsewhere classified, involving shoulder region 5-201 3 Erb Dash. . Referring Provider: Zulma Velasquez, [address] [place], [address]. tel:[phone] [facility], [address], [place], [place], [id number], [place] tel:[phone] [facility] Other joint derangement, not elsewhere classified, involving shoulder region 3-201 3 Erb Dash. . Referring Provider: Manish Mckenna, [address] [place], [address]. tel:[phone] [facility], [address], [place], [place], [id number], [place] tel:[phone] [facility] [place] Other joint derangement, not elsewhere classified, involving shoulder regionPain in joint involving shoulder region 1-201 2 Erb Dash. . Referring Provider: Zulma Velasquez, [address] [place], [address]. tel:[phone] [facility], [address], [place], [place], [id number], [place] tel:[phone] [place] [facility] [place] Other joint derangement, not elsewhere classified, involving shoulder regionPain in joint involving shoulder region 2 Erb Dash. . Referring Provider: Zulma Velasquez, [address] [place], [address]. tel:[phone] [facility], [address], [place], [place], [id number], [place] tel:[phone] [place] [facility] [place] Other joint derangement, not elsewhere classified, involving shoulder regionPain in joint involving shoulder region 2 Erb Dash. . Referring Provider: Zulma Velasquez, [address] [place], [address]. tel:[phone] [facility], [address] [facility], [place], [place], [id number], [place] tel:[phone] [place] Pain in joint involving shoulder regionOther joint derangement, not elsewhere classified, involving shoulder region 0 2 Erb Dash. . Referring Provider: Zulma Velasquez, [address] [place], [address]. tel:[phone] [facility], [address] [facility] [address], [place], [place], [id number], [place] tel:[phone] [place] Other joint derangement, not elsewhere classified, involving shoulder regionPain in joint involving shoulder region 0 2 Erb Dash. . Referring Provider: Zulma Velasquez, [address] [place], [address]. tel:[phone] [facility], [address] [facility] [address], [place], [place], [id number], [place] tel:[phone] [place] Pain in joint involving shoulder regionOther joint derangement, not elsewhere classified, involving shoulder region 2 Erb Dash. . Referring Provider: Zulma Velasquez, [address] [place], [address]. tel:[phone] [facility], [address] [facility] [address], [place], [place], [id number], [place] tel:[phone] [facility] Other joint derangement, not elsewhere classified, involving shoulder regionPain in joint involving shoulder region 2 Madisyn Bowling. . Referring Provider: Zulma Velasquez, [address] [place], [address]. tel:[phone] Family History Family Member Type Diagnosis Age At Onset No Information Payers Payer name Insurance type Covered green party ID Authorgeetha patel(s) [facility] [id number] Social History Type Description Quantity Date Captured [...]
--- OUTSIDE RECORDS SUMMARY | 2025-03-23 16:56 | XMS_ITS | Clinical Summary ---
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 Name Role Phone Tan Acosta MD Primary Care Provider [phone] Allergies No known active allergies Medications multivitamin with minerals (Multiple Vitamin-Mineral s) tablet Take 1 tablet by mouth daily Active docosahexaenoic acid-epa 120-180 mg capsule Take 1,000 mg by mouth 2 (two) times a day Active LORazepam (ATIVAN) 0.5 mg tablet Take 1 tablet (0.5 mg total) by mouth 2 (two) times a day as needed 4 Active Zepbound 7.5 mg/0.5 mL pen injector ADMINISTER 7.5 MG UNDER THE SKIN 1 TIME A WEEK FOR WEIGHT LOSS 5 Active Zepbound 10 mg/0.5 mL pen injector ADMINISTER 10 MG UNDER THE SKIN 1 TIME A WEEK FOR WEIGHT LOSS 5 Active venlafaxine XR (EFFEXOR-XR) 150 mg 24 hr capsule 5 Active Active Problems Problem Noted Date Diagnosed Date Abnormal finding on MRI of brain 07/11/2024 COVID-19 02/09/2022 Obstructive sleep apnea syndrome, moderate 08/30 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/2018 Generalized anxiety disorder 05/31/2018 Depression, major, single episode, moderate 03/01 Liver cyst 07/29/2016 Dermatofibroma 03/24/2015 Right hip pain 03/24/2015 Lump in the testicle 04/29/2014 Fatigue 01/03/2013 Encounters Date Type Department Care Team Description 02/11/2025 12:27 PM CDT - 02/11/2025 11:59 PM CDT Hospital Encounter [facility] Neuro Interventional Radiology [address] [place] [address] Libia Urias MD White matter abnormality on MRI of brain Discharge Disposition: Discharge to home or self care 02/08/2025 1:50 PM CDT Lab [facility] [address] [place] [phone] Abnormal brain MRI; White matter abnormality on MRI of brain 02/08/2025 Orders Only [facility] Neuro Interventional Radiology [address] [place] [address] Devon Washington, 02/07/2025 Orders Only [facility] Stroke [address] [facility] [address] [place] [phone] Libia Urias MD Abnormal brain MRI (Primary Dx) 02/05/2025 7:31 PM CDT - 02/05/2025 11:59 PM CDT Hospital Encounter [facility] [address] [place] [phone] Libia Urias MD Abnormal brain MRI Discharge Disposition: Discharge to home or self care 02/05/2025 Telephone [facility] Neuro Interventional Radiology [address] [place] [address] Joyce Ball, GENE 02/04/2025 Telephone [facility] Neuro Interventional Radiology [address] [place] [address] Joyce Ball, GENE 01/18/2025 Orders Only [facility] [address] [facility] [address] [place] [phone] Libai Urias MD White matter abnormality on MRI of brain (Primary Dx) 01/18/2025 Orders Only [facility]roke [address] [facility] [address] [place] [phone] Libia Urias MD White matter abnormality on MRI of brain (Primary Dx) 01/18/2025 Orders Only [facility] Medicine Stroke [address] [facility] [address] [place] [phone] Libia Urias MD Abnormal brain MRI (Primary Dx) 01/17/2025 Orders Only [facility] Stroke [address] [facility] [address] [place] [phone] Libia Urias MD Abnormal brain MRI (Primary Dx) 01/17/2025 Telephone [facility] Stroke [address] [facility] [address] [place] [phone] Libia Urias MD 01/11/2025 12:15 PM CDT Lab [facility] ([facility]) [address] [place] [phone] Abnormal finding on MRI of brain 01/11/2025 10:00 AM CDT Office Visit [facility] Stroke [address] [facility] [address] [place] [phone] Libia Urias MD Abnormal finding on MRI of brain (Primary Dx) from Last 3 Months Surgical History Surgery Date Site/Laterality Comments APPENDECTOMY SINUS SURGERY EAR SURGERY LUMBAR PUNCTURE WO INJECTION, DIAGNOSTIC 02/11/2025 N/A Medical History Medical History Date Comments Anxiety Sleep apnea Family History Medical History Relation Name Comments No Known Problems Brother 1 Phuc No Known Problems Brother 2 Maximus No Known Problems Brother 3 Manan CADASIL (cerebral autosomal dominant arteriopathy with subcortical infarcts and leukoencephalopathy) Cousin No Known Problems Daughter No Known Problems Father No Known Problems Maternal Grandfather No Known Problems Maternal Grandmother Stroke Mother Transient ischemic attack Mother White matter disease Mother CADASIL (cerebral autosomal dominant arteriopathy with subcortical infarcts and leukoencephalopathy) Mother's Brother Stroke Mother's Brother No Known Problems Paternal Grandfather No Known Problems Paternal Grandmother No Known Problems Son Relation Name Status Comments Brother 1 Phuc Alive Brother 2 Maximus Alive Brother 3 Manan Alive Cousin Alive Daughter Alive Father Unknown Maternal Grandfather Maternal Grandmother Mother Alive Mother's Brother Alive Paternal Grandfather Paternal Grandmother Son Alive Social History Tobacco Use Types Packs/Day Years Used Date Smoking Tobacco: Never Smokeless Tobacco: Never Tobacco Cessation:Counseling Given: Not Answered Personal Safety Answer Date Recorded Have you ever been in or are you currently in a harmful physical or emotional relationship or is someone making you feel afraid or unsafe? 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 Gender Identity Not on file Sexual Orientation Not on file Obstetrics History Last Filed Vital Signs Vital Sign Reading Time Taken Comments Blood Pressure 111/69 02/11/2025 4:50 PM CDT Pulse 85 02/11/2025 4:50 PM CDT Temperature 36.3 C (97.3 F) 02/11/2025 1:20 PM CDT Respiratory Rate 14 02/11/2025 4:50 PM CDT Oxygen Saturation 97% 02/11/2025 4:50 PM CDT Inhaled Oxygen Concentration - - Weight 101.3 kg (223 lb 6.4 oz) 025 10:07 AM CDT Height 182.9 cm (6') 01/11/2025 10:07 AM CDT Body Mass Index 30.3 01/11/2025 10:07 AM CDT Plan of Treatment Health Maintenance Due Date Last Done Comments Depression Screening 1985 Hepatitis C Screening 1985 Varicella Vaccines (1 of 2 - 13+ 2-dose series) 1998 Hepatitis B Screening 12/14/2003 Regular Well Visit/Exam 18-64 12/14/2003 HPV Vaccines (1 - 3-dose SCD M series) 2012 DTaP/Tdap/Td Vaccine (1 - Tdap) 07/24/2014 07/23/2014 Covid-19 Vaccine (3 - 2024-2 6 season) 2025 10/03/2020, 09/05/2020 Influenza Vaccine (#1) 2025 4, 04/16/2019, 03/28/2018 Pneumococcal vaccine <65 Aged Out No longer eligible based on patient's age to complete this topic Procedures Procedure Name Priority Date/Time Associated Diagnosis Comments IR LUMBAR PUNCTURE, DIAGNOSTIC INCL FLUORO GUIDANCE Schedule Routine, Read Routine (OP Routine) 02/11/2025 4:02 PM CDT White matter abnormality on MRI of brain GLUCOSE, CSF Routine 02/11/2025 3:02 PM CDT White matter abnormality on MRI of brain CSF PROTEIN Routine 02/11/2025 3:02 PM CDT White matter abnormality on MRI of brain CELL COUNT W REFLEX DIFFERENTIAL, CSF Routine 02/11/2025 3:02 PM CDT White matter abnormality on MRI of brain IGG INDEX, CSF Routine 02/11/2025 3:02 PM CDT White matter abnormality on MRI of brain MULTIPLE SCLEROSIS (MS) PROFILE WITH REFLEX TO OLIGOCLONAL BANDS, CSF/SERUM Routine 02/11/2025 3:02 PM CDT White matter abnormality on MRI of brain OLIGOCLONAL BANDS Routine 02/11/2025 3:0 2 PM CDT White matter abnormality on MRI of brain BACTERIAL CULTURE AND GRAM STAIN, CSF Routine 02/11/2025 3:02 PM CDT White matter abnormality on MRI of brain NMO (NEUROMYELITIS OPTICA) IGG, SERUM Routine 02/08/2025 1:07 PM CDT Abnormal brain MRI MRI THORACIC SPINE W WO CONTRAST Schedule Routine, Read Routine (OP Routine) 02/05/2025 8:59 PM CDT Abnormal brain MRI MRI CERVICAL SPINE W WO CONTRAST Schedule Routine, Read Routine (OP Routine) 02/05/2025 8:59 PM CDT Abnormal brain MRI THYROID FUNCTION CASCADE Routine 01/11/2025 11:46 AM CDT Abnormal finding on MRI of brain HIV 1/2 ANTIBODY PLUS P24 ANTIGEN Routine 01/11/2025 11:46 AM CDT Abnormal finding on MRI of brain RPR Routine 01/11/2025 11:46 AM CDT Abnormal finding on MRI of brain from Last 3 Months Results * IR Lumbar Puncture, Diagnostic incl Fluoro Guidance (02/11/2025 4:02 PM CDT) Anatomical Region Laterality Modality Spine N/A Radio Fluoroscop y 02/11/2025 5:10 PM CDT Impressions 02/11/2025 5:15 PM CDT Successful diagnostic lumbar puncture under fluoroscopic guidance. Dr. Hilton (radiology fellow) was present and participated in the procedure. Dictated by: Candido Vincent MD The radiology attending physician has personally reviewed this study, and had reviewed and/or edited this written report and agrees with it. Electronically signed by: Bo Arriola M.D. Narrative 02/11/2025 5:15 PM CDT EXAMINATION: Diagnostic fluoroscopically guided lumbar puncture HISTORY: Abnormal MRI TECHNIQUE: The risks and benefits of the lumbar puncture including, but not limited to infection, bleeding, spinal headache, cerebrospinal fluid (CSF) leak requiring blood patch procedure, and irritation or damage to nerves causing pain or permanent injury were discussed with the patient. The patient was given the opportunity to ask questions. The patient acknowledged understanding, gave verbal and written consent, and wished to proceed. A time-out was performed prior to the procedure. Attending physician: Dr. Bo Arriola M.D. was present for the entire procedure. The L3-L4 level was localized with fluoroscopy. The skin overlying this level was sterilely prepped, draped, and infiltrated with 1% lidocaine for local anesthesia. Under intermittent fluoroscopic guidance, a 22 gauge 3.5 inch Quincke spinal needle was inserted into the thecal sac at this level. Clear CSF was identified. A total of approximately 8 ml of CSF was removed and placed into 4 specimen tubes. The patient was then transferred to the nursing area for further observation and 1 hour of bedrest. OPENING PRESSURE: Not performed. Procedure Note Bo Arriola MD - 02/11/2025 EXAMINATION: Diagnostic fluoroscopically guided lumbar puncture HISTORY: Abnormal MRI TECHNIQUE: The risks and benefits of the lumbar puncture including, but not limited to infection, bleeding, spinal headache, cerebrospinal fluid (CSF) leak requiring blood patch procedure, and irritation or damage to nerves causing pain or permanent injury were discussed with the patient. The patient was given the opportunity to ask questions. The patient acknowledged understanding, gave verbal and written consent, and wished to proceed. A time-out was performed prior to the procedure. Attending physician: Dr. Bo Arriola M.D. was present for the entire procedure. The L3-L4 level was localized with fluoroscopy. The skin overlying this level was sterilely prepped, draped, and infiltrated with 1% lidocaine for local anesthesia. Under intermittent fluoroscopic guidance, a 22 gauge 3.5 inch Quincke spinal needle was inserted into the thecal sac at this level. Clear CSF was identified. A total of approximately 8 ml of CSF was removed and placed into 4 specimen tubes. The patient was then transferred to the nursing area for further observation and 1 hour of bedrest. OPENING PRESSURE: Not performed. IMPRESSION: Successful diagnostic lumbar puncture under fluoroscopic guidance. Dr. Hilton (radiology fellow) was present and participated in the procedure. Dictated by: Caniddo Vincent MD The radiology attending physician has personally reviewed this study, and had reviewed and/or edited this written report and agrees with it. Electronically signed by: Bo Arriola M.D. Libia Urias MD IMG FLUOROSCOPY PROCEDUR ES Final Result * Cell count w/reflex diff, CSF (02/11/2025 3:02 PM CDT) Tube Number, CSF Tube 3 Color, CSF Colorless Colorless [facility] Clarity, CSF Clear Clear [facility] Xanthochromia , CSF Absent Absent [facility] Nucleated cells, CSF 5 0 - 5 /cumm [facility] RBC, CSF 0 0 - 0 /cumm [facility] CSF 02/11/2025 3:02 PM CDT 02/11/2025 6:55 PM CDT Libia Urias MD LAB BODY FLUIDS AND STOO LS ORDERABLES Final Result [facility] Department [place] [address] * Multiple sclerosis (MS) profile with reflex to oligoclonal bands, CSF/serum (02/11/2025 3:02 PM CDT) Jensen free light chain, CSF 0.0145 <0.1000 mg/dL [facility] Comment: Negative. The kappa free light concentration measured in CSF is lower than the threshold associated with multiple sclerosis. Clinical correlation recommended. ADDITIONAL INFORMATION This test has been modified from the railroad dining car steward/stewardess's instructions. Its performance characteristics were determined by [facility] in a manner consistent with CLIA requirements. This test has not been cleared or approved by the U.S. Food and Drug Administration. A [facility] study published in 2018 with 325 patients suggested that a kappa free light chain concentration in CSF greater than or equal to 0.06 mg/dL has 92% clinical sensitivity in the diagnosis of multiple sclerosis (ref 1). A second, larger [facility] study with 1355 patients published in 2020 showed that a kappa CSF concentration greater than or equal to 0.06 mg/dL had approximately 89% sensitivity. When kappa was greater than or equal to 0.1 mg/dL it had similar sensitivity (87%) to the finding of 2 unique CSF oligoclonal bands (89%) (ref 2). Given the difference in thresholds based on these studies and highest sensitivity at the threshold of 0.06mg/dL, any CSF kappa free light chain result greater than or equal to 0.06 mg/dL will reflex to oligoclonal banding when the multiple sclerosis profile tests are ordered. A result less than 0.06 mg/dL is considered negative. A result between 0.06 and 0.099 mg/dL is considered borderline; look for oligoclonal banding test results. A result greater than or equal to 0.1 mg/dL is considered positive; look for oligoclonal banding test results. References: 1.Ashu KM, Dai E, Anand SC, Delvis GUPTA, Elvis MOSLEY, Toshia ROGERS, et al. CSF free light chain identification of demyelinating disease: comparison with oligoclonal banding and other CSF indexes. Clin Chem Lab Med. 2018;56(7):1071-80. 2.Amaury RS, Anand SC, Derik Henson, Irene B, Elvis DL, Toshia ROGERS, et al. CSF Jensen Free Light Chains: Cutoff Validation for Diagnosing Multiple Sclerosis. [place] Clin Proc. 2020; [id number](12)91710-2. doi: 10.1016/j.mayocp.2020.09.014. Blood/Cerebrospi nal fluid 02/11/2025 3:02 PM CDT 02/11/2025 7:33 PM CDT Libia Urias MD LAB BLOOD ORDERABLES Fin al Result Performing Organization Address [facility] de Phone Number [facility] [place] [address] [place] * Oligoclonal banding (02/11/2025 3:02 PM CDT) Oligoclonal bands, CSF 1 bands [place] Oligoclonal bands 0 bands [facility] Oligoclonal bands, interp 1 <2 bands [facility] Comment: The oligoclonal band assay detected 1 unique IgG band in the CSF. This is a negative result. Test Performed by: [place] [address] Crime Scene Technician: Malika Mitchell Ph.D.; CLIA# [id number] Blood/Cerebrospi nal fluid 02/11/2025 3:02 PM CDT 02/11/2025 7:29 PM CDT Libia Urias MD LAB BLOOD ORDERABLES Fin al Result Performing Organization Address [facility] Co de Phone Number [facility] [place] [address] [place] * IgG index, CSF and blood (02/11/2025 3:02 PM CDT) Pathologist [facility] Immunoglobulin G 1310 767 - 1590 mg/dL [place] Albumin 4300 3500 - 5000 mg/dL [facility] Comment: Test Performed by: [facility] [address] [id number] Crime Scene Technician: Malika Mitchell Ph.D.; CLIA# [id number] Test Performed by: [facility] [address] [place] [address] Crime Scene Technician: Malika Mitchell Ph.D.; CLIA# [id number] IgG, CSF 4.0 <=8.1 mg/dL [facility] Albumin, CSF 26.1 <=27.0 mg/dL [facility] CSF IgG/albumin ratio, CSF 0.15 <=0.21 [facility] IgG/Albumin Ratio, Serum 0.30 <=0.40 [facility] IgG index, CSF 0.50 <=0.70 [facility] IgG synthesis rate, CSF 0.36 <=12 mg/24H [facility] Albumin quotient, CSF/Serum 6.07 <=14 [facility] Blood/Cerebrospi nal fluid 02/11/2025 3:02 PM CDT 02/11/2025 7:33 PM CDT Lbiia Urias MD LAB BODY FLUIDS AND STOO LS ORDERABLES Final Result [facility] Department [place] [address] [place] [facility] * Bacterial culture and gram stain, CSF CSF (02/11/2025 3:02 PM CDT) Pathologist [facility] Direct Specimen Exam Stain: Cytospin Gram stain shows: No polymorphonuclear leukocytes seen. Other cellular material present. No organisms seen. Report Final Report: No growth [facility] CSF 02/11/2025 3:02 PM CDT 02/11/2025 7:03 PM CDT Narrative [facility] - 02/17/2025 1:22 PM CDT Fluid specimen received. Testing performed by [facility] ([phone]). Libia Urias MD LAB MICROBIOLOGY - GENER AL ORDERABLES Final Result Performing Organization Address [facility] Co de Phone Number [facility] [place] [address] * Protein, total, CSF (02/11/2025 3:02 PM CDT) Protein, CSF 43 5 - 45 mg/dL Comment:Reviewed CSF 02/11/2025 3:02 PM CDT 02/11/2025 7:01 PM CDT Libia Urias MD LAB BODY FLUIDS AND STOO LS ORDERABLES Final Result Performing Organization Address [facility] de Phone Number [facility] Department [place] [address] * Glucose, CSF (02/11/2025 3:02 PM CDT) Glucose, CSF 54 mg/dL Comment: Reviewed Reference Interval Information: CSF Glucose should be 60-66% of the most current plasma glucose concentration (milligrams/deciliter) CLIN. CHEM. 41/3, 343-360 (1994), Clinical Utility of Biochemical Analysis of Cerebrospinal Fluid, Julián Casarez and Logan Whaley. Current interpretive data was last revised on 2019. CSF 02/11/2025 3:02 PM CDT 02/11/2025 7:01 PM CDT Libia Urias MD LAB BODY FLUIDS AND STOO LS ORDERABLES Final Result Performing Organization Address [facility] Co de Phone Number [facility] Department [place] [address] * NMO (neuromyelitis optica) IgG, serum (02/08/2025 1:07 PM CDT) NMO/AQP4 IgG ser Negative Negative [facility] Comment: Recommend repeat testing in 6 months if clinical suspicion is high. Negative result can occur in the setting of immunosuppression. ADDITIONAL INFORMATION This test was developed and its performance characteristics determined by [facility] in a manner consistent with CLIA requirements. This test has not been cleared or approved by the U.S. Food and Drug Administration. Test Performed by: [facility] [place] [address] Crime Scene Technician: Malika Mitchell Ph.D.; CLIA# [id number] Blood 02/08/2025 1:07 PM CDT 02/08/2025 2:09 PM CDT Libia Urias MD LAB BLOOD ORDERABLES Fin al Result [facility] Department [place] [address] [place] [facility] * MRI Thoracic Spine W WO Contrast (02/05/2025 8:59 PM CDT) Anatomical Region Laterality Modality Spine N/A Magnetic Resonan ce 02/06/2025 8:52 AM CDT Impressions 02/06/2025 9:53 AM CDT 1. No cervical or thoracic cord lesion. 2. 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 Dictated by: Geoff De La Rosa MD The radiology attending physician has personally reviewed this study, and had reviewed and/or edited this written report and agrees with it. Electronically signed by: Jordan Dunbar M.D. Narrative 02/06/2025 9:53 AM CDT EXAMINATION: 1. Magnetic resonance imaging (MRI) of the cervical spine without and with contrast 2. Magnetic resonance imaging (MRI) of the thoracic spine without and with contrast HISTORY: Family history of CADASIL, intracranial white matter lesions TECHNIQUE: Multiplanar multi-weighted MRI of the cervical spine was performed without and with intravenous contrast using the standard protocol. Multiplanar multi-weighted MRI of the thoracic was performed without and with intravenous contrast using the standard protocol. Contrast information: 20 mL Gadoterate Meglumine IV COMPARISON: None Available. FINDINGS: CERVICAL SPINE: No cervical cord lesion or abnormal cervical cord enhancement. Straightening of the normal cervical lordosis without significant listhesis. Vertebral bodies demonstrate normal signal intensity on all sequences. No acute fracture is identified. The craniocervical junction is normal. The visualized portions of the skull base and the posterior fossa are normal. Multilevel disc height loss and desiccation. Annular fissures are noted at C5-C6 and C6-C7. No soft tissue abnormality is identified. Normal signal voids are present in the vertebral arteries. Multilevel degenerative changes most prominent at C5-C6 and C6-C7 with disc bulges and central protrusions which indent the ventral cord resulting in moderate canal stenosis. There is also moderate right and severe left foraminal stenosis at C4-C5. THORACIC SPINE: No thoracic cord lesion or abnormal thoracic cord enhancement. There is a T2 hyperintense enhancing lesion within the left T9 lamina (series 8 image 26, series 14 image 57) which likely represents an atypical hemangioma. Mild kyphosis at T12-L1. No significant listhesis. Vertebral bodies demonstrate normal signal intensity on all sequences. There are no compression fractures. Multilevel disc height loss and desiccation. Hemangioma is noted within hepatic segment 7. The aorta is normal. Multilevel spondylosis with disc bulges, extrusions, protrusions, and facet arthropathy and ligamentum flavum infolding most prominent at T3-T4 with right paracentral extrusion which indents the ventral cord. There is also severe bilateral foraminal stenosis at T10-T11 and moderate bilateral foraminal stenosis at T11-T12. Procedure Note Jordan Dunbar MD PhD - 02/06/2025 EXAMINATION: 1. Magnetic resonance imaging (MRI) of the cervical spine without and with contrast 2. Magnetic resonance imaging (MRI) of the thoracic spine without and with contrast HISTORY: Family history of CADASIL, intracranial white matter lesions TECHNIQUE: Multiplanar multi-weighted MRI of the cervical spine was performed without and with intravenous contrast using the standard protocol. Multiplanar multi-weighted MRI of the thoracic was performed without and with intravenous contrast using the standard protocol. Contrast information: 20 mL Gadoterate Meglumine IV COMPARISON: None Available. FINDINGS: CERVICAL SPINE: No cervical cord lesion or abnormal cervical cord enhancement. Straightening of the normal cervical lordosis without significant listhesis. Vertebral bodies demonstrate normal signal intensity on all sequences. No acute fracture is identified. The craniocervical junction is normal. The visualized portions of the skull base and the posterior fossa are normal. Multilevel disc height loss and desiccation. Annular fissures are noted at C5-C6 and C6-C7. No soft tissue abnormality is identified. Normal signal voids are present in the vertebral arteries. Multilevel degenerative changes most prominent at C5-C6 and C6-C7 with disc bulges and central protrusions which indent the ventral cord resulting in moderate canal stenosis. There is also moderate right and severe left foraminal stenosis at C4-C5. THORACIC SPINE: No thoracic cord lesion or abnormal thoracic cord enhancement. There is a T2 hyperintense enhancing lesion within the left T9 lamina (series 8 image 26, series 14 image 57) which likely represents an atypical hemangioma. Mild kyphosis at T12-L1. No significant listhesis. Vertebral bodies demonstrate normal signal intensity on all sequences. There are no compression fractures. Multilevel disc height loss and desiccation. Hemangioma is noted within hepatic segment 7. The aorta is normal. Multilevel spondylosis with disc bulges, extrusions, protrusions, and facet arthropathy and ligamentum flavum infolding most prominent at T3-T4 with right paracentral extrusion which indents the ventral cord. There is also severe bilateral foraminal stenosis at T10-T11 and moderate bilateral foraminal stenosis at T11-T12. IMPRESSION: 1. No cervical or thoracic cord lesion. 2. 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 Dictated by: Geoff De La Rosa MD The radiology attending physician has personally reviewed this study, and had reviewed and/or edited this written report and agrees with it. Electronically signed by: Jordan Dunbar M.D. Libia Urias MD [facility] MRI PROCEDURES Final Result * MRI Cervical Spine W WO Contrast (02/05/2025 8:59 PM CDT) Anatomical Region Laterality Modality Spine N/A Magnetic Resonan ce 02/06/2025 8:52 AM CDT Impressions 02/06/2025 9:53 AM CDT 1. No cervical or thoracic cord lesion. 2. 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 Dictated by: Geoff De La Rosa MD The radiology attending physician has personally reviewed this study, and had reviewed and/or edited this written report and agrees with it. Electronically signed by: Jordan Dunbar M.D. Narrative 02/06/2025 9:53 AM CDT EXAMINATION: 1. Magnetic resonance imaging (MRI) of the cervical spine without and with contrast 2. Magnetic resonance imaging (MRI) of the thoracic spine without and with contrast HISTORY: Family history of CADASIL, intracranial white matter lesions TECHNIQUE: Multiplanar multi-weighted MRI of the cervical spine was performed without and with intravenous contrast using the standard protocol. Multiplanar multi-weighted MRI of the thoracic was performed without and with intravenous contrast using the standard protocol. Contrast information: 20 mL Gadoterate Meglumine IV COMPARISON: None Available. FINDINGS: CERVICAL SPINE: No cervical cord lesion or abnormal cervical cord enhancement. Straightening of the normal cervical lordosis without significant listhesis. Vertebral bodies demonstrate normal signal intensity on all sequences. No acute fracture is identified. The craniocervical junction is normal. The visualized portions of the skull base and the posterior fossa are normal. Multilevel disc height loss and desiccation. Annular fissures are noted at C5-C6 and C6-C7. No soft tissue abnormality is identified. Normal signal voids are present in the vertebral arteries. Multilevel degenerative changes most prominent at C5-C6 and C6-C7 with disc bulges and central protrusions which indent the ventral cord resulting in moderate canal stenosis. There is also moderate right and severe left foraminal stenosis at C4-C5. THORACIC SPINE: No thoracic cord lesion or abnormal thoracic cord enhancement. There is a T2 hyperintense enhancing lesion within the left T9 lamina (series 8 image 26, series 14 image 57) which likely represents an atypical hemangioma. Mild kyphosis at T12-L1. No significant listhesis. Vertebral bodies demonstrate normal signal intensity on all sequences. There are no compression fractures. Multilevel disc height loss and desiccation. Hemangioma is noted within hepatic segment 7. The aorta is normal. Multilevel spondylosis with disc bulges, extrusions, protrusions, and facet arthropathy and ligamentum flavum infolding most prominent at T3-T4 with right paracentral extrusion which indents the ventral cord. There is also severe bilateral foraminal stenosis at T10-T11 and moderate bilateral foraminal stenosis at T11-T12. Procedure Note Jordan Dunbar MD PhD - 02/06/2025 EXAMINATION: 1. Magnetic resonance imaging (MRI) of the cervical spine without and with contrast 2. Magnetic resonance imaging (MRI) of the thoracic spine without and with contrast HISTORY: Family history of CADASIL, intracranial white matter lesions TECHNIQUE: Multiplanar multi-weighted MRI of the cervical spine was performed without and with intravenous contrast using the standard protocol. Multiplanar multi-weighted MRI of the thoracic was performed without and with intravenous contrast using the standard protocol. Contrast information: 20 mL Gadoterate Meglumine IV COMPARISON: None Available. FINDINGS: CERVICAL SPINE: No cervical cord lesion or abnormal cervical cord enhancement. Straightening of the normal cervical lordosis without significant listhesis. Vertebral bodies demonstrate normal signal intensity on all sequences. No acute fracture is identified. The craniocervical junction is normal. The visualized portions of the skull base and the posterior fossa are normal. Multilevel disc height loss and desiccation. Annular fissures are noted at C5-C6 and C6-C7. No soft tissue abnormality is identified. Normal signal voids are present in the vertebral arteries. Multilevel degenerative changes most prominent at C5-C6 and C6-C7 with disc bulges and central protrusions which indent the ventral cord resulting in moderate canal stenosis. There is also moderate right and severe left foraminal stenosis at C4-C5. THORACIC SPINE: No thoracic cord lesion or abnormal thoracic cord enhancement. There is a T2 hyperintense enhancing lesion within the left T9 lamina (series 8 image 26, series 14 image 57) which likely represents an atypical hemangioma. Mild kyphosis at T12-L1. No significant listhesis. Vertebral bodies demonstrate normal signal intensity on all sequences. There are no compression fractures. Multilevel disc height loss and desiccation. Hemangioma is noted within hepatic segment 7. The aorta is normal. Multilevel spondylosis with disc bulges, extrusions, protrusions, and facet arthropathy and ligamentum flavum infolding most prominent at T3-T4 with right paracentral extrusion which indents the ventral cord. There is also severe bilateral foraminal stenosis at T10-T11 and moderate bilateral foraminal stenosis at T11-T12. IMPRESSION: 1. No cervical or thoracic cord lesion. 2. 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 Dictated by: Geoff De La Rosa MD The radiology attending physician has personally reviewed this study, and had reviewed and/or edited this written report and agrees with it. Electronically signed by: Jordan Dunbar M.D. Libia Urias MD IMG MRI PROCEDURES Final Result * Thyroid Function [place] (01/11/2025 11:46 AM CDT) TSH 0.55 0.30 - 4.20 mcIUnit/mL Blood 01/11/2025 11:4 6 AM CDT 01/11/2025 12:57 PM CDT Tashi Guerrero MD LAB BLOOD ORDERABLES Fin al Result Performing Organization Address City/State/[facility] Co de Phone Number [facility] [address] [facility] Department [place] [address] * HIV 1/2 Antibody plus p24 Antigen Blood (01/11/2025 11:46 AM CDT) HIV 1/2 ab + p24 ag Nonreactive Nonreactive Comment:Nonreactive for HIV- 1 antigen and HIV-1/HIV-2 antibodies. No laboratory evidence of HIV infection. If acute HIV infection is suspected, consider testing for HIV-1 RNA. Current interpretive data was last revised on 22. Blood 01/11/2025 11:4 6 AM CDT 01/11/2025 12:57 PM CDT Tashi Guerrero MD LAB MICROBIOLOGY - GENER AL ORDERABLES Final Result [facility] Department [place] [address] * RPR Blood (01/11/2025 11:46 AM CDT) RPR Nonreactive Nonreactive Blood 01/11/2025 11:4 6 AM CDT 01/11/2025 12:57 PM CDT us Tashi Guerrero MD LAB MICROBIOLOGY - GENER AL ORDERABLES Final Result Performing Organization Address [facility] Co de Phone Number [facility] Department [place] [address] from Last 3 Months Insurance CIG CIGNA CIGNA Care Teams Rubber Covering Machine Operator Relationship Specialty Start Date End Date Tan Acosta MD [address] [place] [address] PCP - General Internal Medicine 12/06/22
--- OUTSIDE RECORDS SUMMARY | 2025-03-23 16:56 | XMS_ITS | Clinical Summary ---
Author Organization [facility] Address [address] [place] [address] Care Team Providers Care Sample Sawyer Name Role Phone Tan Acosta MD Primary Care Provider [phone] Allergies No known active allergies Medications Multiple Vitamin (MULTIVITAMIN ADULT OR) Take 1 tablet by mouth daily. Active [place]-3 Fatty Acids (FISH OIL) 1200 MG Cap Take 1 capsule by mouth daily. Active Tirzepatide-Weig ht Management (ZEPBOUND) 12.5 MG/0.5ML SolutionIndicati ons:Obstructive sleep apnea syndrome, moderate Inject 12.5 mg into the skin once a week. 2 mL 1 02/22/20 25 Active desvenlafaxine ER (PRISTIQ) 100 MG 24 hr tabletIndication s:Generalized anxiety disorder Take 1 tablet (100 mg total) by mouth daily. 90 tablet 3 03/05/20 25 Active CPAP DEVICE, DME, 1 Device by Does not apply route. AutoPap: [id number] ([facility]) 025 Discontinued(Pt . elected to discontinue med) LORazepam (ATIVAN) 0.5 MG tabletIndication s:Generalized anxiety disorder TAKE 1 TABLET(0.5 MG) BY MOUTH TWICE DAILY NEEDED FOR ANXIETY 10 tablet 03/12/20 24 025 Discontinued(Pt . elected to discontinue med) acetaZOLAMIDE (DIAMOX) 250 MG tabletIndication s:Altitude sickness preventative measures Take one tablet bid starting 24 hours prior to ascent and continue for 3 days after arrival at peak. 8 tablet 11/27/19 25 025 Discontinued(Th erapy completed) venlafaxine XR (EFFEXOR-XR) 150 MG 24 hr capsuleIndicatio ns:Generalized anxiety disorder Take 1 capsule (150 mg total) by mouth daily. 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/2018 Generalized anxiety disorder 05/31/2018 Depression, major, single episode, moderate 03/01 Liver cyst 07/29/2016 Dermatofibroma 03/24/2015 Right hip pain 03/24/2015 Lump in the testicle 04/29/2014 Fatigue 01/03/2013 Resolved Problems Problem Noted Date Diagnosed Date Resolved Date Influenza vaccine needed 03/28/201803/2020 Ear congestion 06/02/2017 05/31/2018 Encounters Date Type Department Care Team Description 03/05/2025 8:20 AM CDT Office Visit [facility] Internal [address] [phone] Tan Acosta MD Follow Up; Depression; Anxiety (Pt feels the venlafaxine is not helping as much as previously. ); Obstructive Sleep Apnea ; Obesity (F/u zepbound ); Radiology Results (Pt would like to discuss abnormal MRI of the brain and neurology's thoughts) 03/05/2025 Travel 02/21/2025 MyChart Message Enc [facility] Internal [address] [phone] Tan Acosta MD Zepbound 01/09/2025 Telephone [facility] Internal [address] [address] Tan Acosta MD Medication Problem 12/26/2024 2:40 PM CDT Office Visit [facility] Internal [address] [address] Sonia Soliman, DO Sore Throat (Pt presents today for sore throat, headache, fever around 100, sx began 48/72 hours ago. Daughter tested positive for Strep yesterday. no OTC meds taken.) 12/26/2024 Travel 12/26/2024 Telephone [facility] Family & Internal Medicine [address] [address] Tan Acosta MD Information from Last 3 Months Immunizations Immunization Administration Dates Next Due Fluzone (IIV3, Trivalent, 0.5 ML Prefilled Syrin ge) 03/05/2025,04/12/2024 Fluzone 6 Months+ Quad (0.5 mL Prefilled [...] Cessation:Counseling Given: Yes Comments:can't remember when he quit-been several years Alcohol Use Standard Drinks/Week Comments Not Currently 0 (1 standard drink = 0.6 oz pur e alcohol) AUDIT-C Answer Date Recorded Frequency of Alcohol Consumption 2-3 times a wee k 05/31/2018 Average Number of Drinks 1 or 2 019 Frequency of Binge Drinking Not on file 06/2018 PHQ-2 Answer Date Recorded Patient Health Questionnaire-2 Score 1 07/12/2024 Sex and Gender Information Value Date Recorded Sex Assigned at Male 05/31/2018 10:17 AM PIANO ASSEMBLER Legal Sex Male 4:36 PM CDT Gender Identity Male 05/31/2018 10:17 AM PIANO ASSEMBLER Sexual Orientation Straight 05/31/2018 10 :17 AM PIANO ASSEMBLER Last Filed Vital Signs Vital Sign Reading Time Taken Comments Blood Pressure 100/70 03/05/2025 8:30 AM CDT Pulse 93 03/05/2025 8:30 AM CDT Temperature 36.7 C (98.1 F) 03/05/2025 8:30 AM CDT Respiratory Rate 18 03/05/2025 8:30 AM CDT Oxygen Saturation 98% 03/05/2025 8: 30 AM CDT Inhaled Oxygen Concentration - - Weight 102.9 kg (226 lb 14.4 oz) 03/05/2025 8:30 AM CDT Height 180.3 cm (5' 11) 03/05/2025 8:30 AM CDT Body Mass Index 31.65 03/05/2025 8:30 AM CDT Plan of Treatment Upcoming Encounters Date Type Department Care Team (Late st Contact Info) Description 06/12/2025 8:40 AM PIANO ASSEMBLER Office Visit [facility] Medical [facility] Family & Internal Medicine [address] [phone] Tan Acosta MD [address] [place] [address] [phone] Health Maintenance Due Date Last Done Comments Hepatitis A Vaccines (1 of 2 - Risk 2-dose series) 2004 Hepatitis B Vaccines (1 of 3 - 19+ 3-dose series) 2004 HPV Vaccines (1 - 3-dose SCDM series) 2012 DTaP, Tdap and Td Vaccines (1 - Tdap) 07/24/2014 07/23/2014 COVID-19 Vaccine ( - season) 2025 10/03/2020, 09/05/2020 Annual Physical 04/12/2025 04/12/2024, 01/05/2021 Hepatitis C Completed 04/24/2019 PHQ-2 (Physician [place]) Completed 07/12/2024 Influenza Adult Completed 03/05/2025, 03/30, 04/16/2019, Additional history exists Meningococcal B Vaccine Aged Out No l onger eligible based on patient's age to complete this topic Meningococcal Vaccine Aged Out No jose manuel yahaira eligible based on patient's age to complete this topic Pneumococcal Vaccine: Pediatrics (0 to 5 Years) and At-Risk Patients (6 to 49 Years) Aged Out No longer eligible based on patient's age to complete this topic RSV Immunizations Under 20 Months Aged Out No longer eligible based on patient's age to complete this topic Procedures Procedure Name Priority Date/Time Associated Diagnosis Comments STREP A RAPID Routine 12/26/2024 Sore throat HEPATITIS C ANTIBODY Routine 04/24/2019 12:04 PM PIANO ASSEMBLER Dysuria STD exposure from Last 3 Months or Most Recently Relevant to Health Maintenance Results * STREP A RAPID (12/26/2024) RAPID STREP TEST NEGATIVE NEGATIVE [facility] Internal Control: VALID VALID [facility] STRUCTURE OF ANTERIOR REGION OF NECK / Unknown 12/26/2024 Sonia Soliman DO MICROBIOLOGY - GENERAL ORDERABL ES Final Result Performing Organization Address City/[facility]/ZIP Co de Phone Number [facility] [address] [place] [address], * HEPATITIS C ANTIBODY (04/24/2019 12:04 PM PIANO ASSEMBLER) HEPATITIS C AB NON-REACTI VE NON-REACTI VE 04/24/2019 8:48 PM PIANO ASSEMBLER [facility] 04/24/2019 12:0 4 PM PIANO ASSEMBLER [facility] Final Resul t [facility] [address] [id number], [place] [phone] from Last 3 Months or Most Recently Relevant to Health Maintenance [place] [address] [place] [address] Care Teams Sample Sawyer Relationship Specialty Start Date End Date Tan Acosta MD [address] [place] [address] PCP - General 01/19/13
--- OUTSIDE RECORDS SUMMARY | 2025-03-23 16:56 | XMS_ITS | Clinical Summary ---
Author Organization [facility] Address [id number] [place] [address] [place] [address] Care Team Providers Care Roundhouse Worker Name Role Phone Unavailable Primary Care Provider [...] on file Legal Sex Male 7:36 AM SENIOR DENTIST Gender Identity Not on file Sexual Orientation Not on file Last Filed Vital Signs Vital Sign Reading Time Taken Comments Blood Pressure 131/84 04/08/2020 9:11 AM SENIOR DENTIST Pulse 85 04/08/2020 9:11 AM SENIOR DENTIST Temperature 36.7 C (98 F) 04/08/2020 9:11 AM SENIOR DENTIST Respiratory Rate - - Oxygen Saturation 99% 04/08/2020 9:11 AM SENIOR DENTIST Inhaled Oxygen Concentration - - Weight 108.9 kg (240 lb) 04/08/2020 9:11 AM SENIOR DENTIST Height 182.9 cm (6') 04/08/2020 9:11 AM SENIOR DENTIST Body Mass Index 32.55 04/08/2020 9:11 AM SENIOR DENTIST Plan of Treatment Health Maintenance Due Date Last Done Comments DTAP/TDAP/TD VACCINES (1 - Tdap) 2004 HEPATITIS B VACCINES (1 of 3 - 19+ 3-dose series) 11/27 HPV VACCINES (1 - 3-dose SCDM series) 2012 INFLUENZA VACCINE (#1) 2024 04/16/2019 Insurance [facility]
--- OUTSIDE RECORDS SUMMARY | 2025-03-23 16:58 | XMS_ITS | Encounter Summary ---
Author Organization [facility] Address [address] [place] [address] Care Team Providers Care Traffic Control Flagger Name Role Phone Tan Acosta MD Primary Care Provider [phone] Encounter Details Date Type Department Care Team (Late st Contact Info) Description 11/09/2019 Prep for Procedure [facility] [place], [place] [phone] Reza Aburto MD [address] [phone] Social History Tobacco Use Types Packs/Day Years Used Date Smoking Tobacco: Former Cigarettes Smokeless Tobacco: Former Chew Comments:can't remember when he quit-been several years [...] Sex Assigned at Male 05/31/2018 10:17 AM ELECTRIC DEICER INSPECTOR Legal Sex Male 4:36 PM CDT Gender Identity Male 05/31/2018 10:17 AM ELECTRIC DEICER INSPECTOR Sexual Orientation Straight 05/31/2018 10 :17 AM ELECTRIC DEICER INSPECTOR COVID-19 Exposure Response Date Recorded In the last month, have you been in contact with someone who was confirmed or suspected to have Coronavirus / COVID-19? No / Unsure 11/12/2019 12:28 PM CDT documented as of this encounter Plan of Treatment Upcoming Encounters Date Type Department Care Team (Late st Contact Info) Description 06/12/2025 8:40 AM ELECTRIC DEICER INSPECTOR Office Visit [facility] Family & Internal Medicine - [address] [phone] [place] [address] [place] [id number] documented as of this encounter Results * PRE-SURGICAL/PRE-PROCEDURE CORONAVIRUS (COVID 19) (11/09/2019 1:15 PM CDT) CORONAVIRUS SARS COV 2 PCR (RESP) NOT DETECTED NOT DETECTED 11/11/2019 4:54 AM CDT [facility] Comment: A Not Detected (negative) test result for this test means that SARS- CoV-2 RNA was not present in the specimen above the limit of detection. A negative result does not rule out the possibility of COVID-19 and should not be used as the sole basis for treatment or patient management decisions. If COVID-19 is still suspected, based on exposure [...] providers and patients using the following websites: https://www.[facility].com/home/Covid-19/HCP/NAAT/fact-sheet2 https://www.[facility].com/home/Covid-19/Patients/NAAT/ fact-sheet2 This test has been authorized by the FDA under an Emergency Use Authorization (EUA) for use by authorized laboratories. Due to the current public health emergency, [facility] is receiving a high volume of samples [...] including collection of an additional specimen. Methodology: Nucleic Acid Amplification Test (NAAT) includes PCR or TMA Additional information about COVID-19 can be found at the [facility] website: www.[facility]/Covid19. Test performed at [facility] [address] [id number] Director: ARYAN GIRON DO,MPH NASOPHARYNGEAL SWAB / Unknown 11/09/2019 1:15 PM CDT us Reza Aburto MD MICROBIOLOGY - GENERAL ORDERABLE S Final Result [facility] [id number] [place] [id number] documented in this encounter Visit Diagnoses Diagnosis Diarrhea- Primary documented in this encounter Additional Health Concerns Infection Onset Date Last Indicated Resolved Time COVID-19 Rule Out 11/09/2019 11/09/2019 11/11/2019 4:54 AM CDT COVID-19 Rule Out 11/09/2019 11/09/2019 05/09/2020 2:45 PM ELECTRIC DEICER INSPECTOR COVID-19 Rule Out 04/03/2021 04/03/2021 04/03/2021 10:25 AM CDT COVID-19 Rule Out 04/03/2021 04/03/2021 04/04/2021 2:31 AM CDT COVID-19 Rule Out 06/03/2023 06/03/2023 06/03/2023 1:53 PM ELECTRIC DEICER INSPECTOR COVID-19 Rule Out 06/03/2023 06/03/2023 06/04/2023 11:32 PM ELECTRIC DEICER INSPECTOR Respiratory Rule Out 09/17/2024 09/17/2024 025 2:41 PM CDT documented as of this encounter Care Teams Traffic Control Flagger Relationship Specialty Start Date End Date Tan Acosta MD [address] [place] [address] PCP - General 01/19/13 documented as of this encounter
[2025-03-23 17:01] VITALS: BP 114/80; PULSE 100; RESP 18; TEMP 36.3; O2SAT 100
--- NOTE | 2025-03-23 17:05 | ED.URI ---
HPI - URI/Sore Throat General Chief Complaint: Upper Respiratory Infection Stated Complaint: strep Patient presents to the [facility] with complaints of sore throat, headache, pressure behind eyes, Nausea,and fever that began over the last 12 hours. Patient reports child was positive for strep earlier this week and patient reports trying to avoid this but it started to have symptoms. no remedies or medications taken for symptoms. Denies chills, body aches, dizziness, cough, shortness of breath, vomiting, or diarrhea. Related Data Home Medications ?Medication ?Instructions ?Recorded ?Confirmed ?Last Taken ?Type desvenlafaxine succinate 100 mg mg PO 03/23/25 Unknown History tablet,extended release 24 hr tirzepatide (weight loss) 10 mg subcut 03/23/25 Unknown History mg/0.5 mL subcutaneous pen injector (Zepbound) Allergies Allergy/AdvReac Type Severity Reaction Status Date / Time No Known Allergies Allergy Verified 03/23/25 17:01 Review of Systems Constitutional: Constitutional: Reports as per HPI, Denies chills, Reports fatigue, Reports fever(s) and Denies weakness Eyes: Eyes: Reports no additional eye complaints ENT: Reports as per HPI, Denies nasal congestion and Reports sore throat Cardiovascular: Cardiovascular: Reports no additional cardiovascular complaints Respiratory: Respiratory: Reports as per HPI, Denies chest congestion, Denies cough, Denies dyspnea and Denies wheezing Gastrointestinal: Gastrointestinal: Reports as per HPI, Denies abdominal pain, Denies diarrhea, Reports nausea and Denies vomiting Genitourinary: Genitourinary: Reports no additional male genitourinary complaints Musculoskeletal: Musculoskeletal: Reports no additional musculoskeletal complaints Integumentary/Breasts: Skin/Breast: Reports as per HPI and Denies rash Neurologic: Reports as per HPI, Denies vertigo, Denies dizziness, Reports headache(s) and Denies weakness Psychiatric: Psychiatric: Reports no additional psychiatric complaints Endocrine: Endocrine: Reports no additional endocrine complaints Hematologic/Lymphatic: Hematologic/Lymphatic: Reports no additional hematologic/lymphatic complaints Allergic/Immunologic: Allergic/Immunologic: Reports no additional allergic/immunologic complaints [facility] Past Medical History Medical History (Updated 03/23/25 @ 17:17 by Dariela Barnes APRN, AUTOMOTIVE ELECTRICIAN-C) History of anxiety Family History Family History Mother Family history of blood dyscrasia Social History Social History Smoking status: Never smoker Alcohol intake: current Substance use type: does not use Exam Const: General: healthy appearing and no acute distress Nutritional Appearance: well nourished Orientation/consciousness: patient oriented x3 Limitations: no limitations HENMT: Head: normal to inspection Ears: external ears normal and TM's normal bilaterally Face/Nose/Sinus: Normal external nose present and Normal nares present Face and sinus: normal facial exam and sinuses nontender Mouth: Yes Normal oral and palatal mucosa present, Yes lip normal and Yes moist mucous membranes Throat: posterior oropharynx abnormal ( mild erythema with edema no exudate) Neck: Neck: normal visual inspection and lymphadenopathy ( bilateral anterior cervical) Resp: Effort & Inspection: normal respiratory effort Auscultation: clear to auscultation bilaterally Cardio: Rate: regular rate Rhythm: regular rhythm GI: GI Palp: Yes Soft to palpation, No Tenderness to palpation present (GI), No Guarding due to palpation present (GI), No Rigid due to palpation, No Hernia present and No Rebound tenderness present Auscultation: normal bowel sounds Skin: General skin exam: normal color Rashes: no rashes Wounds: no wounds Neuro: General: patient oriented x3 Speech: normal speech Gait exam (Neuro): Normal gait present Psych: Mental Status: mental status grossly normal Affect: normal affect Attitude: cooperative Course Course Level of Care: Express Care Visit Vital Signs Vital signs: Vital Signs Temperature 97.4 F L 03/23/25 17:01 Pulse Rate 100 03/23/25 17:01 Respiratory Rate 18 03/23/25 17:01 Blood Pressure 114/80 03/23/25 17:01 Pulse Oximetry 100 03/23/25 17:01 Oxygen Delivery Room Air 03/23/25 17:01 Temperature 97.4 F L 03/23/25 17:01 Pulse Rate 100 03/23/25 17:01 Respiratory Rate 18 03/23/25 17:01 Blood Pressure 114/80 03/23/25 17:01 Pulse Oximetry 100 03/23/25 17:01 Oxygen Delivery Room Air 03/23/25 17:01 MDM - URI/Sore Throat MDM Narrative Medical decision making narrative: child positive for strep- fever, no cough, lymph node swelling. The patient was evaluated by myself in the [facility] care. History is obtained from patient who is an independent historian and physical exam was performed. Available medical records were reviewed at this time. Exam findings show no acute concerns or changes; patient is non-toxic appearing and is in no distress. Patient is appropriate for outpatient treatment and follow-up. I have evaluated and discussed social determinants of health with the patient that could potentially impact subsequent diagnosis and treatment plans. Differential diagnosis and treatment plan were discussed with the patient. Patient agrees with discussion and after shared medical decision making agrees with plan of care. All questions were answered to the patient's satisfaction. Differential Diagnosis Differential diagnosis: Likely upper respiratory infection, croup, otitis media, sinusitis, bronchitis, influenza and pharyngitis Medical Records Attestation: I reviewed the patient's medical records. Lab Data Attestation: I reviewed the patient's lab results. Discharge Plan Discharge Clinical Impression: Acute bacterial tonsillitis Patient Disposition: Home Condition: Stable Instructions: Antibiotic Form, Strep Throat (ED) Additional Instructions: your strep swab was negative in clinic but given your close contact with someone positive for strep in your symptoms we will go ahead and treat you After 24 hours on antibiotics throw tooth brush away and start using a new one. Do not share drinks. Take Motrin alternating with Tylenol for pain and fever alternating every 4 hours. Increase fluids, avoid caffeine. Follow up with Primary provider if not getting better this week Patient Language: Italian Prescriptions: New amoxicillin 875 mg tablet 875 mg PO Q12H Qty: 20 0RF No Action desvenlafaxine succinate 100 mg tablet extended release 24 hr PO Zepbound 10 mg/0.5 mL pen injector SUBCUT Follow-up/Referrals: Dave,Tan Johnson MD [Primary Care Provider] Time of Disposition: 17:13
[2025-03-23 17:15] LABS: EDSTREPNEGPOS1 Negative (Negative)
== END 2025-03-23 17:15 | disposition home or self-care (01) ==
PROVIDERS: Emergency Provider Nurse Practitioner Family; PCP Internal Medicine
DX: J03.90 Acute tonsillitis, unspecified (principal)
CPT/HCPCS: 87880; 99213; G0463

== ENCOUNTER 2025-04-28 14:40 | Emergency (ER) | payer OTHER, SELFPAY ==
--- OUTSIDE RECORDS SUMMARY | 2025-04-28 14:43 | XMS_ITS | Clinical Summary ---
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 Gender Identity Not on file Sexual Orientation Not on file Last Filed Vital Signs Vital Sign Reading Time Taken Comments Blood Pressure 131/84 04/08/2020 9:11 AM MOLDER WAX BALL Pulse 85 04/08/2020 9:11 AM MOLDER WAX BALL Temperature 36.7 C (98 F) 04/08/2020 9:11 AM MOLDER WAX BALL Respiratory Rate - - Oxygen Saturation 99% 04/08/2020 9:11 AM MOLDER WAX BALL Inhaled Oxygen Concentration - - Weight 108.9 kg (240 lb) 04/08/2020 9:11 AM MOLDER WAX BALL Height 182.9 cm (6') 04/08/2020 9:11 AM MOLDER WAX BALL Body Mass Index 32.55 04/08/2020 9:11 AM MOLDER WAX BALL Plan of Treatment Health Maintenance Due Date Last Done Comments DTAP/TDAP/TD VACCINES (1 - Tdap) 2004 HEPATITIS B VACCINES (1 of 3 - 19+ 3-dose series) 11/27 HPV VACCINES (1 - 3-dose SCDM series) 2012 INFLUENZA VACCINE (#1) 2024 04/16/2019 Insurance [employer]
--- OUTSIDE RECORDS SUMMARY | 2025-04-28 14:43 | XMS_ITS | Clinical Summary ---
Author Organization [facility] Address [facility]ly [facility] [place] [address] Care Team Providers Care Java Jsf Developer Name Role Phone Tan Acosta MD Primary Care Provider [phone] Allergies No known active allergies Medications Multiple Vitamin (MULTIVITAMIN ADULT OR) Take 1 tablet by mouth daily. Active [place]-3 Fatty Acids (FISH OIL) 1200 MG Cap Take 1 capsule by mouth daily. Active desvenlafaxine ER (PRISTIQ) 100 MG 24 hr tabletIndicati ons:Generalize d anxiety disorder Take 1 tablet (100 mg total) by mouth daily. 90 tablet 3 5 Active Tirzepatide-We ight Management (ZEPBOUND) 12.5 MG/0.5ML SolutionIndica tions:Obstruct omkar sleep apnea syndrome, moderate Inject 12.5 mg into the skin once a week. 2 mL 1 5 Active Tirzepatide-We ight Management (ZEPBOUND) 12.5 MG/0.5ML SolutionIndica tions:Obstruct omkar sleep apnea syndrome, moderate Inject 12.5 mg into the skin once a week. 2 mL 1 5 04/22/20 25 Discontinued Active Problems Problem Noted Date Diagnosed [...] Encounters Date Type Department Care Team Description 03/23/2025 Scan [employer] [facility] INFO SRVCS Scanned, [facility] Lab (SCAN) 03/05/2025 8:20 AM CDT Office Visit [facility] Family & Internal [address] [phone] Tan Acosta MD Follow Up; Depression; Anxiety (Pt feels the venlafaxine is not helping as much as previously. ); Obstructive Sleep Apnea ; Obesity (F/u zepbound ); Radiology Results (Pt would like to discuss abnormal MRI of the brain and neurology's thoughts) 03/05/2025 Travel 02/21/2025 MyChart Message Enc [facility] Family & Internal [address] [phone] Tan Acosta MD Zepbound from Last 3 Months Immunizations Immunization Administration [...] Frequency of Alcohol Consumption 2-3 times a hamlet k 05/31/2018 Average Number of Drinks 1 or 2 019 Frequency of Binge Drinking Not on file 06/2018 PHQ-2 Answer Date Recorded Patient Health Questionnaire-2 Score 1 07/12/2024 Sex and Gender Information Value Date Recorded Sex Assigned at Male 05/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 Legal Sex Male 4:36 PM CDT Gender Identity Male 05/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 Sexual Orientation Straight 05/31/2018 10 :17 AM OCEANOGRAPHY PROFESSOR Last Filed Vital Signs Vital Sign Reading Time Taken Comments Blood Pressure 100/70 03/05/2025 8:30 AM CDT Pulse 93 03/05/2025 8:30 AM CDT Temperature 36.7 C (98.1 F) 03/05/2025 8:30 AM CDT Respiratory Rate 18 03/05/2025 8:30 AM CDT Oxygen Saturation 98% 03/05/2025 8:30 AM CDT Inhaled Oxygen Concentration - - Weight 102.9 kg (226 lb 14.4 oz) 03/05/2025 8:30 AM CDT Height 180.3 cm (5' 11) 03/05/2025 8:30 AM CDT Body Mass Index 31.65 03/05/2025 8:30 AM CDT Plan of Treatment Upcoming Encounters Date Type Department Care Team (Late st Contact Info) Description 06/12/2025 8:40 AM OCEANOGRAPHY PROFESSOR Office Visit [facility] Family & Internal Medicine - [place] [address] [place] [address] Tan Acosta MD [facility] [place] [address] Health Maintenance Due Date Last Done Comments Hepatitis A Vaccines (1 of 2 - Risk 2-dose series) 2004 Hepatitis B Vaccines (1 of 3 - 19+ 3-dose series) 2004 HPV Vaccines (1 - 3-dose SCDM series) 2012 DTaP, Tdap and Td Vaccines (1 - Tdap) 07/24/2014 07/23/2014 COVID-19 Vaccine (3 - 2025-26 season) 2025 10/03/2020, 09/05/2020 Annual Physical 04/12/2025 04/12/2024, 01/05/2021 Hepatitis C Completed 04/24/2019 PHQ-2 (Physician [place]) Completed 07/12/2024 Influenza Adult Completed 03/05/2025, 03/30, [...] Procedure Name Priority Date/Time Associated Diagnosis Comments OUTSIDE LAB (SCAN ORDER) 03/23/2025 HEPATITIS C ANTIBODY Routine 04/24/2019 12:04 PM OCEANOGRAPHY PROFESSOR Dysuria STD exposure from Last 3 Months or Most Recently Relevant to Health Maintenance Results * OUTSIDE LAB (SCAN ORDER) (03/23/2025) 03/23/2025 [facility] Scanned SCANNING Final Resu lt * HEPATITIS C ANTIBODY (04/24/2019 12:04 PM OCEANOGRAPHY PROFESSOR) HEPATITIS C AB NON-REACTI VE NON-REACTI VE 04/24/2019 8:48 PM OCEANOGRAPHY PROFESSOR [facility] 04/24/2019 12:0 4 PM OCEANOGRAPHY PROFESSOR [facility] Final Resul t [facility] [address] [place] [address], [place] [phone] from Last 3 Months or Most Recently Relevant to Health Maintenance Insurance [employer] Care Teams Java Jsf Developer Relationship Specialty Start Date End Date Tan Acosta MD [address] [place] [address] PCP - General 01/19/13
--- OUTSIDE RECORDS SUMMARY | 2025-04-28 14:43 | XMS_ITS | Clinical Summary ---
Author Organization [facility] Address [address] [place] [phone] Care Team Providers Care Certified Activities Director Name Role Phone Tan Acosta MD Primary Care Provider [phone] Allergies No known active allergies Medications multivitamin [...] - 02/11/2025 11:59 PM CDT Hospital Encounter [facility] Neuro Interventional Radiology [address] [place] [address] Libia Urias MD White matter abnormality on MRI of brain Discharge Disposition: Discharge to home or self care 02/08/2025 1:50 PM CDT Lab [facility] [address] [place] [address] Abnormal brain MRI; White matter abnormality on MRI of brain 02/08/2025 Orders Only [facility] Neuro Interventional Radiology [address] [place] [address] [place], 02/07/2025 Orders Only [facility] Medicine Stroke [address] [facility] Advanced Medicine [address] [phone] Libia Urias MD Abnormal brain MRI (Primary Dx) 02/05/2025 7:31 PM CDT - 02/05/2025 11:59 PM CDT Hospital Encounter 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 The kappa free light concentration measured in CSF is lower than the threshold associated with multiple sclerosis. Clinical correlation recommended. ADDITIONAL INFORMATION This test has been modified from the business resiliency manager's instructions. Its performance characteristics were determined by [facility] in a manner consistent with CLIA requirements. This test has not been cleared or approved by the U.S. Food and Drug Administration. A [facility] study published in 2018 with 325 patients suggested that a kappa free light chain concentration in CSF greater than or equal to 0.06 mg/dL has 92% clinical sensitivity in the diagnosis of multiple sclerosis (ref 1). A second, larger [facility] study with 1355 patients published in 2020 [...] look for oligoclonal banding test results. References: 1.sAhu KM, Dai E, Anand SC, Delvis GUPTA, Elvis MOSLEY, Toshia ROGERS, et al. CSF free light chain identification of demyelinating disease: comparison with oligoclonal banding and other CSF indexes. Clin Chem Lab Med. 2018;56(7):1071-80. 2.Amaury RS, Anand SC, Derik A, Irene B, Elvis DL, Toshia ROGERS, et al. CSF [place] Free Light Chains: Cutoff Validation for Diagnosing Multiple Sclerosis. [place] Clin Proc. 2020; [address](22)74110-2. doi: 10.1016/j.mayocp.2020.09.014. Blood/Cerebrospi nal fluid 02/11/2025 3:02 PM CDT 02/11/2025 7:33 PM CDT Libia Urias MD LAB BLOOD ORDERABLES Fin al Result Performing Organization Address [facility] de Phone Number [facility] [place] [address] [place] ref [facility] * Oligoclonal banding (02/11/2025 3:02 PM CDT) Oligoclonal bands, CSF 1 bands [place] ref [facility] Oligoclonal bands 0 bands [facility] Oligoclonal bands, interp 1 <2 bands [facility] Comment: The oligoclonal band assay detected 1 unique IgG band in the CSF. This is a negative result. Test Performed by: [place] [address] Computer Numerical Control Operator: Malika Mitchell Ph.D.; CLIA# [id number] Blood/Cerebrospi nal fluid 02/11/2025 3:02 PM CDT 02/11/2025 7:29 PM CDT Libai Urias MD LAB BLOOD ORDERABLES Fin al Result Performing Organization Address [facility] Co de Phone Number [facility] [place] [address] [place] ref [facility] * IgG index, CSF and blood (02/11/2025 3:02 PM CDT) Pathologist [facility] Immunoglobulin G 1310 767 - 1590 mg/dL [place] ref [facility] Albumin 4300 3500 - 5000 mg/dL [facility] Comment: Test Performed by: [facility] [address] [place] [address] Computer Numerical Control Operator: Malika Mitchell Ph.D.; CLIA# [id number] Test Performed by: [facility] [address] [place] [address] Computer Numerical Control Operator: Malika Mitchell Ph.D.; CLIA# [id number] IgG, CSF 4.0 <=8.1 mg/dL [facility] Albumin, CSF 26.1 <=27.0 mg/dL [facility] CSF IgG/albumin ratio, CSF 0.15 <=0.21 [facility] IgG/Albumin Ratio, Serum 0.30 <=0.40 [facility] IgG index, CSF 0.50 <=0.70 [facility] IgG synthesis rate, CSF 0.36 <=12 mg/24H [facility] Albumin quotient, CSF/Serum 6.07 <=14 [facility] Blood/Cerebrospi nal fluid 02/11/2025 3:02 PM CDT 02/11/2025 7:33 PM CDT Libia Urias MD LAB BODY FLUIDS AND STOO LS ORDERABLES Final Result [facility] Department [place] [address] [place] ref [facility] * Bacterial culture and gram stain, CSF CSF (02/11/2025 3:02 PM CDT) Pathologist [facility] Direct Specimen Exam Stain: Cytospin Gram stain shows: No polymorphonuclear leukocytes seen. Other cellular material present. No organisms seen. Report Final Report: No growth [facility] CSF 02/11/2025 3:02 PM CDT 02/11/2025 7:03 PM CDT Narrative [facility] - 02/17/2025 1:22 PM CDT Fluid specimen received. Testing performed by [facility] Microbiology Laboratory ([phone]). Libia Urias MD LAB MICROBIOLOGY - GENER AL ORDERABLES Final Result Performing Organization Address [facility] Co de Phone Number [facility] Department [place] [address] * Protein, total, CSF (02/11/2025 3:02 PM CDT) Protein, CSF 43 5 - 45 mg/dL Comment:Reviewed CSF 02/11/2025 3:02 PM CDT 02/11/2025 7:01 PM CDT Libia Urias MD LAB BODY FLUIDS AND STOO LS ORDERABLES Final Result Performing Organization Address [facility] de Phone Number [facility] Department [place] [address] * Glucose, CSF (02/11/2025 3:02 PM CDT) [...] LS ORDERABLES Final Result Performing Organization Address [facility] Co de Phone Number [facility] [place] [address] * NMO (neuromyelitis optica) IgG, serum (02/08/2025 1:07 PM CDT) NMO/AQP4 IgG ser Negative Negative [facility] ref [facility] Comment: Recommend repeat testing in 6 months if clinical suspicion is high. Negative result can occur in the setting of immunosuppression. ADDITIONAL INFORMATION This test was developed and its performance characteristics determined by [facility] in a manner consistent with CLIA requirements. This test has not been cleared or approved by the U.S. Food and Drug Administration. Test Performed by: [facility] - [address] [address] Computer Numerical Control Operator: Malika Mitchell Ph.D.; CLIA# [id number] Blood 02/08/2025 1:07 PM CDT 02/08/2025 2:09 PM CDT Libia Urias MD LAB BLOOD ORDERABLES Fin al Result [facility] Department [place] [address] [place] ref [facility] * MRI Thoracic Spine W [...] MD IMG MRI PROCEDURES Final Result * MRI Cervical [...] Urias MD IMG MRI PROCEDURES Final Result from Last 3 Months Insurance [employer] [facility] Care Teams Certified Activities Director Relationship Specialty Start Date End Date Tan Acosta MD [address] [place] [address] PCP - General Internal Medicine 12/06/22
[2025-04-28 14:48] VITALS: BP 116/80; PULSE 105; RESP 18; TEMP 36; O2SAT 100
--- NOTE | 2025-04-28 14:50 | ED.URI ---
HPI - URI/Sore Throat General Chief Complaint: Upper Respiratory Infection Stated Complaint: Sore throat / Fever patient presents to the [facility] with complaints of sore throat, fatigue, low-grade fever, and nasal congestion that began over the last couple days. Patient does note daughter has frequent strep and is currently at the end of her antibiotics. No other known sick contacts. Patient reports taking flu and COVID testing at home which were both negative. [id number] medications taken for symptoms. Denies dizziness, chills, body aches, difficulty swallowing, shortness of breath. Related Data Home Medications ?Medication ?Instructions ?Recorded ?Confirmed ?Last Taken ?Type desvenlafaxine succinate 100 mg mg PO 03/23/25 Unknown History tablet,extended release 24 hr tirzepatide (weight loss) 10 mg subcut 03/23/25 Unknown History mg/0.5 mL subcutaneous pen injector (Zepbound) Allergies Allergy/AdvReac Type Severity Reaction Status Date / Time No Known Allergies Allergy Verified 04/28/25 14:46 Review of Systems Constitutional: Constitutional: Reports as per HPI, Denies chills, Reports fatigue, Reports fever(s) and Denies weakness Eyes: Eyes: Reports no additional eye complaints ENT: Reports as per HPI, Denies vertigo, Denies dizziness, Denies nasal congestion and Reports sore throat Cardiovascular: Cardiovascular: Reports no additional cardiovascular complaints Respiratory: Respiratory: Reports as per HPI, Denies chest congestion, Reports cough, Denies dyspnea and Denies wheezing Gastrointestinal: Gastrointestinal: Reports no additional gastrointestinal complaints Genitourinary: Genitourinary: Reports no additional male genitourinary complaints Musculoskeletal: Musculoskeletal: Reports as per HPI, Denies back pain and Denies myalgias Integumentary/Breasts: Skin/Breast: Reports as per HPI, Denies pruritus, Denies erythema and Denies rash Neurologic: Reports as per HPI, Denies vertigo, Denies dizziness, Reports headache(s) and Denies weakness Psychiatric: Psychiatric: Reports no additional psychiatric complaints Endocrine: Endocrine: Reports no additional endocrine complaints Hematologic/Lymphatic: Hematologic/Lymphatic: Reports no additional hematologic/lymphatic complaints Allergic/Immunologic: Allergic/Immunologic: Reports no additional allergic/immunologic complaints [facility] Past Medical History Medical History (Updated 04/28/25 @ 14:59 by Dariela Barnes, CAR CHANG[employer], [employer]IVER-[employer]) History of anxiety Family History Family History Mother Family history of blood dyscrasia Social History Social History Smoking status: Never smoker Alcohol intake: current Substance use type: does not use Exam Const: General: healthy appearing and no acute distress Nutritional Appearance: well nourished Orientation/consciousness: patient oriented x3 Limitations: no limitations HENMT: Head: normal to inspection Ears: external ears normal and TM's normal bilaterally Face/Nose/Sinus: Normal external nose present and Normal nares present Face and sinus: normal facial exam and sinuses nontender Mouth: Yes Normal oral and palatal mucosa present, Yes lip normal and Yes moist mucous membranes Throat: posterior oropharynx abnormal ( Moderate erythema with no edema or exudate) Neck: Neck: normal visual inspection and no lymphadenopathy Resp: Effort & Inspection: normal respiratory effort Auscultation: clear to auscultation bilaterally Cardio: Rate: regular rate Rhythm: regular rhythm Skin: General skin exam: normal color Rashes: no rashes Wounds: no wounds Neuro: General: patient oriented x3 Cranial nerves: Yes Nystagmus not present Speech: normal speech Gait exam (Neuro): Normal gait present Extrem: General: normal to inspection Psych: Mental Status: mental status grossly normal Affect: normal affect Attitude: cooperative Course Course Level of Care: Express Care Visit Vital Signs Vital signs: Vital Signs Temperature 96.8 F L 04/28/25 14:48 Pulse Rate 105 H 04/28/25 14:48 Respiratory Rate 18 04/28/25 14:48 Blood Pressure 116/80 04/28/25 14:48 Pulse Oximetry 100 04/28/25 14:48 Oxygen Delivery Room Air 04/28/25 14:48 Temperature 96.8 F L 04/28/25 14:48 Pulse Rate 105 H 04/28/25 14:48 Respiratory Rate 18 04/28/25 14:48 Blood Pressure 116/80 04/28/25 14:48 Pulse Oximetry 100 04/28/25 14:48 Oxygen Delivery Room Air 04/28/25 14:48 MDM - URI/Sore Throat MDM Narrative Medical decision making narrative: strep negative will send culture. The patient was evaluated by myself in the express care. History is obtained from patient who is an independent historian and physical exam was performed. Available medical records were reviewed at this time. Exam findings show no acute concerns or changes; patient is non-toxic appearing and is in no distress. Patient is appropriate for outpatient treatment and follow-up. I have evaluated and discussed social determinants of health with the patient that could potentially impact subsequent diagnosis and treatment plans. Differential diagnosis and treatment plan were discussed with the patient. Patient agrees with discussion and after shared medical decision making agrees with plan of care. All questions were answered to the patient's satisfaction. Differential Diagnosis Differential diagnosis: Likely upper respiratory infection, croup, otitis media, sinusitis, viral infection, bronchitis, influenza and pharyngitis Medical Records Attestation: I reviewed the patient's medical records. Lab Data Attestation: I reviewed the patient's lab results. Discharge Plan Discharge Clinical Impression: Pharyngitis Patient Disposition: Home Condition: Stable Instructions: Antibiotic Form, Pharyngitis (ED), Strep Throat (DC) Additional Instructions: The rapid strep swab was negative today at [facility]. You will be notified in a few days if the culture comes back positive for strep, and appropriate antibiotics will be called in for him at that time. His symptoms are likely due to a viral illness, which is not treated with antibiotics. Viral symptoms can be present for up to 10-14 days. Take Tylenol or ibuprofen for fever or pain. Rest and stay hydrated. Follow up with your PCP in 10 days if symptoms are not improving, or sooner if symptoms are worsening. Patient Language: Albanian Prescriptions: No Action desvenlafaxine succinate 100 mg tablet extended release 24 hr PO Zepbound 10 mg/0.5 mL pen injector SUBCUT Follow-up/Referrals: Dave,Tna Johnson MD [Primary Care Provider] Time of Disposition: 14:59
[2025-04-28 14:55] LABS: EDSTREPNEGPOS1 Negative (Negative)
== END 2025-04-28 15:03 | disposition home or self-care (01) ==
PROVIDERS: Emergency Provider Nurse Practitioner Family; PCP Internal Medicine
DX: J02.9 Acute pharyngitis, unspecified (principal)
CPT/HCPCS: 87081; 87880; 99213; G0463